=== PATIENT | male | born 1955 | race Caucasian/White ===

== ENCOUNTER 2019-06-17 07:49 | Inpatient (IN) | payer BC ==
--- NOTE | 2019-06-17 08:49 | RAD REPORT ---
EXAM DESCRIPTION: RAD - Chest Pa And Lat (2 Views) - 06/17/2019 8:30 am CLINICAL HISTORY: COUGH Chest pain. COMPARISON: Chest Single View dated 04/11/2017; Chest Single View dated 04/08/2016; Chest Single View dated 04/07/2016 FINDINGS: The lungs are clear. The heart is mildly prominent. No displaced fractures. Hardware plate is present in the cervical spine.
[2019-06-17] MEDS ORDERED: METHYLPREDNISOLONE 125 MG INJ ONE (08:58)
[2019-06-17] MEDS ORDERED: IPRATROPIUM BROM 0.5MG/2.5ML ONE (08:58)
[2019-06-17] MEDS ORDERED: LEVALBUTEROL 1.25 MG/3 ML NEB ONE (08:59)
[2019-06-17] MEDS ORDERED: ONDANSETRON 4 MG/2 ML VIAL ONE (08:59)
[2019-06-17] MEDS ORDERED: NA CHLORIDE 0.9% 1,000 ML ONE ×2 (08:59→09:42)
[2019-06-17] MEDS ORDERED: ACETAMINOPHEN 325 MG TABLET ONE (08:59)
[2019-06-17 09:03] LABS: Absolute Lymphocytes (CBC) 0.6 K/uL (0.7-4.9); Basophils % 0.9 % (0-1.3); Hematocrit 39.2 % (39.6-49.0); Lymphocytes % 10.2 % (15.3-44.8); MPV 7.6 fL (7.6-11.3); RBC Red Blood Cell Count 4.47 M/uL (4.33-5.43)
[2019-06-17 09:09] LABS: Protime INR 1.03
[2019-06-17 09:24] LABS: ALT/SGPT 33 U/L (12-78); AST/SGOT 26 U/L (15-37); Albumin 4.1 g/dL (3.4-5.0); Alkaline Phosphatase 80 U/L (45-117); BUN Blood Urea Nitrogen 17 mg/dL (7-18); Bicarbonate 26 mmol/L (21-32); Bilirubin Direct 0.1 mg/dL (0-0.2); Bilirubin Total 0.4 mg/dL (0.2-1.0); Glucose Level 99 mg/dL (74-106); Lipase 179 U/L (73-393); NT PRO-BNP 403 pg/mL (<125); Potassium 4.4 mmol/L (3.5-5.1); Protein, Total 7.6 g/dL (6.4-8.2); Sodium Level 137 mmol/L (136-145); Troponin (Emerg Dept Use Only) < 0.02 ng/mL (0.0-0.045)
[2019-06-17] MEDS ORDERED: HYDROCODONE/CHLORPHEN 5 ML/OSYR ONE (09:42)
[2019-06-17] MEDS ORDERED: OSELTAMIVIR 75 MG CAP ONE (09:42)
--- NOTE | 2019-06-17 09:45 | ER ---
Nurse's Notes [facility] Name: Bert Quigley Age: 64 yrs Sex: Male : 1955 Arrival Date: 06/17/2019 Time: 07:50 Bed 5 Private MD: Mati Doran E Diagnosis: Fever, unspecified;Dyspnea;Unspecified kidney failure-insufficency;Influenza due to identified novel influenza A virus;Chest pain, unspecified;Volume depletion Presentation: 06/17 08:05 Presenting complaint: Patient states: Cough,congestion, fever, and SOB x 2-3 days, ph states, " I've been coughing so much I almost throw up.". Transition of care: patient was not received from another setting of care. Onset of symptoms was June 17, 2019. Risk Assessment: Do you want to hurt yourself or someone else? Patient reports no desire to harm self or others. Initial Sepsis Screen: Does the patient meet any 2 criteria? HR > 90 bpm. Does the patient have a suspected source of infection? Yes: Productive cough/pneumonia. Care prior to arrival: None. 08:05 Method Of Arrival: Ambulatory ph 08:05 Acuity: TIN 3 ph Historical: - Allergies: 08:13 Cefoxitin Sodium; ph - Home Meds: 08:13 oxcarbazepine 300 mg oral tab [Active]; nortriptyline 25 mg Oral cap [Active]; ph metoprolol succinate 50 mg oral Tb24 1 tab once daily [Active]; lisinopril 10 mg oral tab 1 tab [Active]; Fish Oil oral oral [Active]; - PMHx: 08:13 thoracic aneurysm; ph - PSHx: 08:13 cervial spine - anterior fusion; ph - Immunization history:: Adult Immunizations unknown. - Social history:: Smoking status: Patient/guardian denies using tobacco. - Family history:: not pertinent. - Ebola Screening: : No symptoms or risks identified at this time. Screenin:14 Abuse screen: Denies threats or abuse. Denies injuries from another. Nutritional ph screening: No deficits noted. Tuberculosis screening: No symptoms or risk factors identified. Fall Risk None identified. Assessment: 08:15 General: Appears in no apparent distress. uncomfortable, well groomed, Behavior is ph calm, cooperative, appropriate for age, Reports fever for 2-3 days. Pain: Complains of pain in back and chest. Neuro: Level of Consciousness is awake, alert, obeys commands, Oriented to person, place, time, situation. Cardiovascular: Reports chest pain, nausea, shortness of breath, Rhythm is regular Chest pain is aggravated by coughing. Respiratory: Reports shortness of breath cough that is Airway is patent Respiratory effort is even, unlabored, Respiratory pattern is regular, symmetrical. GI: Reports nausea, Patient currently denies abdominal pain, diarrhea, vomiting. Derm: Skin is intact, is healthy with good turgor, Skin is pink, warm \\T\\ dry. Musculoskeletal: Circulation, motion, and sensation intact. Range of motion: intact in all extremities. 09:57 Reassessment: Patient appears in no apparent distress at this time. Patient and/or ph family updated on plan of care and expected duration. Pain level reassessed. Patient is alert, oriented x 3, equal unlabored respirations, skin warm/dry/pink. Pt taken to radiology by stretcher for US, family remains at bedside. 11:00 Reassessment: Patient appears in no apparent distress at this time. Patient and/or ph family updated on plan of care and expected duration. Pain level reassessed. Patient is alert, oriented x 3, equal unlabored respirations, skin warm/dry/pink. 12:26 Reassessment: Patient appears in no apparent distress at this time. Patient and/or ph family updated on plan of care and expected duration. Pain level reassessed. 12:59 Reassessment: Patient appears in no apparent distress at this time. awaiting a bed sg assignment at this time. 13:46 Reassessment: Patient appears in no apparent distress at this time. Patient and/or ph family updated on plan of care and expected duration. Pain level reassessed. Pt asleep w/ equal, unlabored respirations, awaiting room assignment. 14:16 Reassessment: Patient appears in no apparent distress at this time. No changes from previously documented assessment. Report called to second floor. Vital Signs: 08:13 Resp 20; Temp 99.7(O); ph 08:13 BP 104 / 78; Pulse 113; Resp 20; Temp 99.7(O); Pulse Ox 100% on R/A; Weight 97.52 kg; ph Height 5 ft. 9 in. (175.26 cm); 09:18 BP 108 / 67; Pulse 114; Resp 18; Pulse Ox 100% on Nebulizer Mask; ph 10:30 BP 113 / 67; Pulse 114; Resp 18; Pulse Ox 98% on R/A; ph 11:30 BP 94 / 60; Pulse 101; Resp 20; Pulse Ox 99% on R/A; ph 12:26 BP 103 / 58; Pulse 100; Resp 18; Pulse Ox 95% on R/A; ph 13:45 BP 96 / 63; Pulse 89; Resp 18; Pulse Ox 92% on R/A; ph 14:17 Temp 98.0; ph 08:13 Body Mass Index 31.75 (97.52 kg, 175.26 cm) ph 12:26 pt asleep ph 13:45 pt asleep ph ED Course: 07:50 Patient arrived in ED. as 07:51 Mati Doran MD is Private Physician. as 07:57 Seferino Sanabria MD is Attending Physician. mira 08:05 Angela Nash RN is Primary Nurse. ph 08:06 Triage completed. ph 08:14 Arm band placed on Patient placed in an exam room, on a stretcher. ph 08:14 Patient has correct armband on for positive identification. Placed in gown. Bed in low ph position. Call light in reach. Side rails up X 1. library monitor on. Pulse ox on. NIBP on. Door closed. Noise minimized. Warm blanket given. 08:23 No provider procedures requiring assistance completed. ph 08:28 Chest Pa And Lat (2 Views) XRAY In Process Unspecified. EDMS 09:42 Ross Abdalla MD is Hospitalizing Provider. mira 10:09 US Extremity Venous W Compression Dariel In Process Unspecified. EDMS 12:03 VQ scan (Nuclear Medicine) In Process Unspecified. EDMS 12:08 Note: VQ SCAN COMPLETE. PT TOLERATED EXAM WELL. NO CHANGE. RETURNED TO ED. NURSE john2 NOTIFIED. RT ANKUR(N), EMBEDDER. 14:17 Patient admitted, IV remains in place. ph Administered Medications: 09:00 Drug: Xopenex 1.25 mg Route: Inhalation; ph 12:24 Follow up: Response: No adverse reaction ph 09:00 Drug: AtroVENT Aerosol 0.5 mg Route: Inhalation; ph 12:24 Follow up: Response: No adverse reaction ph 09:05 Drug: NS 0.9% 500 ml Route: IV; Rate: bolus; Site: left antecubital; ph 12:20 Follow up: Response: No adverse reaction; IV Status: Completed infusion; IV Intake: ph 500ml 09:05 Drug: SOLU-Medrol 125 mg Route: IVP; Site: left antecubital; ph 12:24 Follow up: Response: No adverse reaction ph 09:05 Drug: Tylenol 650 mg Route: PO; ph 12:22 Follow up: Response: No adverse reaction ph 09:05 Drug: Zofran 4 mg Route: IVP; Site: left antecubital; ph 12:23 Follow up: Response: No adverse reaction; Nausea is decreased ph 09:46 Drug: Tussionex Pennkinetic ER 5 ml Route: PO; ph 12:23 Follow up: Response: No adverse reaction ph 09:48 Drug: Tamiflu 75 mg Route: PO; ph 12:23 Follow up: Response: No adverse reaction ph 09:48 Drug: NS 0.9% 1000 ml Route: IV; Rate: 1 bolus; Site: left antecubital; ph 12:24 Follow up: Response: No adverse reaction; IV Status: Completed infusion; IV Intake: ph 1000ml 12:00 Drug: NS 0.9% 1000 ml Route: IV; Rate: 125 ml/hr; Site: left antecubital; ph 12:22 Follow up: Response: No adverse reaction; IV Status: Infusion continued upon admission ph 12:00 Drug: Zithromax 500 mg Route: IVPB; Infused Over: 1 hrs; Site: left antecubital; ph 13:25 Follow up: Response: No adverse reaction; IV Status: Completed infusion sg 12:20 Not Given (Other Intervention Used): Xopenex 1.25 mg Inhalation once ph Intake: 12:20 IV: 500ml; Total: 500ml. ph 12:24 IV: 1000ml; Total: 1500ml. ph Outcome: 09:44 Decision to Hospitalize by Provider. mira 14:17 Admitted to Tele accompanied by tech, via wheelchair, room 222. ph 14:17 Condition: stable 14:17 Instructed on the need for admit. 14:25 Patient left the ED. ph Signatures: Dispatcher [employer] EDMS Hemal Palacios BRIDGETTE RN Seferino Douglas MD MD cha Buechter, Jesse jb2 Martinez, Amelia as Hall, Patricia, RN RN ph
--- NOTE | 2019-06-17 09:45 | EDPHYS ---
Physician Documentation [facility] Name: Bert Quigley Age: 64 yrs Sex: Male : 1955 Arrival Date: 06/17/2019 Time: 07:50 Bed 5 Private MD: Mati Doran E ED Physician Seferino Sanabria HPI: 06/17 08:11 This 64 yrs old Male presents to ER via Ambulatory with complaints of Cough, mira Shortness Of Breath. 08:11 The patient or guardian reports cough, difficulty breathing. Onset: The mira symptoms/episode began/occurred 2 day(s) ago. Severity of symptoms: At their worst the symptoms were mild, moderate, in the emergency department the symptoms are unchanged. Modifying factors: The symptoms are alleviated by nothing, the symptoms are aggravated by exertion. Associated signs and symptoms: The patient has no apparent associated signs or symptoms. The patient has not experienced similar symptoms in the past. Historical: - Allergies: 08:13 Cefoxitin Sodium; ph - Home Meds: 08:13 oxcarbazepine 300 mg oral tab [Active]; nortriptyline 25 mg Oral cap [Active]; ph metoprolol succinate 50 mg oral Tb24 1 tab once daily [Active]; lisinopril 10 mg oral tab 1 tab [Active]; Fish Oil oral oral [Active]; - PMHx: 08:13 thoracic aneurysm; ph - PSHx: 08:13 cervial spine - anterior fusion; ph - Immunization history:: Adult Immunizations unknown. - Social history:: Smoking status: Patient/guardian denies using tobacco. - Family history:: not pertinent. - Ebola Screening: : No symptoms or risks identified at this time. ROS: 08:11 Constitutional: Negative for fever, chills, and weight loss, Eyes: Negative for injury, mira pain, redness, and discharge, ENT: Negative for injury, pain, and discharge, Neck: Negative for injury, pain, and swelling, Cardiovascular: Negative for chest pain, palpitations, and edema, Abdomen/GI: Negative for abdominal pain, nausea, vomiting, diarrhea, and constipation, Back: Negative for injury and pain, : Negative for injury, bleeding, discharge, and swelling, MS/Extremity: Negative for injury and deformity, Skin: Negative for injury, rash, and discoloration, Neuro: Negative for headache, weakness, numbness, tingling, and seizure, Psych: Negative for depression, anxiety, suicide ideation, homicidal ideation, and hallucinations, Allergy/Immunology: Negative for hives, rash, and allergies, Endocrine: Negative for neck swelling, polydipsia, polyuria, polyphagia, and marked weight changes, Hematologic/Lymphatic: Negative for swollen nodes, abnormal bleeding, and unusual bruising. 08:11 Respiratory: Positive for cough, shortness of breath, at rest. Exam: 08:11 Constitutional: This is a well developed, well nourished patient who is awake, alert, mira and in no acute distress. Head/Face: Normocephalic, atraumatic. Eyes: Pupils equal round and reactive to light, extra-ocular motions intact. Lids and lashes normal. Conjunctiva and sclera are non-icteric and not injected. Cornea within normal limits. Periorbital areas with no swelling, redness, or edema. ENT: Nares patent. No nasal discharge, no septal abnormalities noted. Tympanic membranes are normal and external auditory canals are clear. Oropharynx with no redness, swelling, or masses, exudates, or evidence of obstruction, uvula midline. Mucous membranes moist. Neck: Trachea midline, no thyromegaly or masses palpated, and no cervical lymphadenopathy. Supple, full range of motion without nuchal rigidity, or vertebral point tenderness. No Meningismus. Chest/axilla: Normal chest wall appearance and motion. Nontender with no deformity. No lesions are appreciated. Cardiovascular: Regular rate and rhythm with a normal S1 and S2. No gallops, murmurs, or rubs. Normal PMI, no JVD. No pulse deficits. Abdomen/GI: Soft, non-tender, with normal bowel sounds. No distension or tympany. No guarding or rebound. No evidence of tenderness throughout. Back: No spinal tenderness. No costovertebral tenderness. Full range of motion. Male : Normal genitalia with no discharge or lesions. Skin: Warm, dry with normal turgor. Normal color with no rashes, no lesions, and no evidence of cellulitis. MS/ Extremity: Pulses equal, no cyanosis. Neurovascular intact. Full, normal range of motion. Neuro: Awake and alert, GCS 15, oriented to person, place, time, and situation. Cranial nerves II-XII grossly intact. Motor strength 5/5 in all extremities. Sensory grossly intact. Cerebellar exam normal. Normal gait. Psych: Awake, alert, with orientation to person, place and time. Behavior, mood, and affect are within normal limits. 08:11 Respiratory: the patient does not display signs of respiratory distress, Respirations: normal, Breath sounds: decreased breath sounds, that are mild, are scattered, rhonchi, that are mild, are scattered, Respiratory rate: 20 08:11 Musculoskeletal/extremity: DVT Exam: No signs of deep vein thrombosis. no pain, no swelling, no tenderness, negative Homans' sign noted on exam, no appreciated bluish discoloration, no erythema, no increased warmth. 09:22 Musculoskeletal/extremity: DVT Exam: [facility] Vital Signs: 08:13 Resp 20; Temp 99.7(O); ph 08:13 BP 104 / 78; Pulse 113; Resp 20; Temp 99.7(O); Pulse Ox 100% on R/A; Weight 97.52 kg; ph Height 5 ft. 9 in. (175.26 cm); 09:18 BP 108 / 67; Pulse 114; Resp 18; Pulse Ox 100% on Nebulizer Mask; ph 10:30 BP 113 / 67; Pulse 114; Resp 18; Pulse Ox 98% on R/A; ph 11:30 BP 94 / 60; Pulse 101; Resp 20; Pulse Ox 99% on R/A; ph 12:26 BP 103 / 58; Pulse 100; Resp 18; Pulse Ox 95% on R/A; ph 13:45 BP 96 / 63; Pulse 89; Resp 18; Pulse Ox 92% on R/A; ph 14:17 Temp 98.0; ph 08:13 Body Mass Index 31.75 (97.52 kg, 175.26 cm) ph 12:26 pt asleep ph 13:45 pt asleep ph MDM: 07:57 Patient medically screened. [facility] 08:13 Data reviewed: vital signs, nurses notes, lab test result(s), EKG, radiologic studies, [facility] plain films. 06/17 08:11 Order name: Basic Metabolic Panel [facility] 06/17 08:11 Order name: CBC with Diff; Complete Time: 13:02 [facility] 06/17 08:11 Order name: LFT's; Complete Time: 09:37 [facility] 06/17 08:11 Order name: Magnesium; Complete Time: 09:37 [facility] 06/17 08:11 Order name: NT PRO-BNP; Complete Time: 09:37 [facility] 06/17 08:11 Order name: PT-INR; Complete Time: 09:20 [facility] 06/17 08:11 Order name: Troponin (emerg Dept Use Only); Complete Time: 09:37 mira 06/17 08:11 Order name: Blood Culture Adult (2) 06/17 08:11 Order name: Procalcitonin; Complete Time: 09:37 [facility] 06/17 08:11 Order name: Influenza Screen (a \T\ B); Complete Time: 09:20 [facility] 06/17 08:11 Order name: Lactate; Complete Time: 09:20 [facility] 06/17 08:11 Order name: D-Dimer; Complete Time: 09:20 [facility] 06/17 08:11 Order name: Lipase; Complete Time: 09:37 [facility] 06/17 08:12 Order name: Basic Metabolic Panel; Complete Time: 09:37 [facility] 06/17 08:11 Order name: Chest Pa And Lat (2 Views) XRAY; Complete Time: 08:58 [facility] 06/17 09:38 Order name: VQ scan (Nuclear Medicine); Complete Time: 13:02 [facility] 06/17 09:38 Order name: US Extremity Venous W Compression Dariel; Complete Time: 13:02 [facility] 06/17 11:54 Order name: CBC Smear Scan; Complete Time: 13:02 [facility] 06/17 08:11 Order name: EKG; Complete Time: 08:12 06/17 08:11 Order name: Cardiac monitoring; Complete Time: 08:24 06/17 08:11 Order name: EKG - Nurse/Tech; Complete Time: 09:15 mira 06/17 08:11 Order name: IV Saline Lock; Complete Time: 09:15 [facility] 06/17 08:11 Order name: Labs collected and sent; Complete Time: 09:16 [facility] 06/17 08:11 Order name: O2 Per Protocol; Complete Time: 08:24 [facility] 06/17 08:11 Order name: O2 Sat Monitoring; Complete Time: 08:24 mira 06/17 13:13 Order name: CONS Pharmacy Consult EDMS Administered Medications: 09:00 Drug: Xopenex 1.25 mg Route: Inhalation; ph 12:24 Follow up: Response: No adverse reaction ph 09:00 Drug: AtroVENT Aerosol 0.5 mg Route: Inhalation; ph 12:24 Follow up: Response: No adverse reaction ph 09:05 Drug: NS 0.9% 500 ml Route: IV; Rate: bolus; Site: left antecubital; ph 12:20 Follow up: Response: No adverse reaction; IV Status: Completed infusion; IV Intake: ph 500ml 09:05 Drug: SOLU-Medrol 125 mg Route: IVP; Site: left antecubital; ph 12:24 Follow up: Response: No adverse reaction ph 09:05 Drug: Tylenol 650 mg Route: PO; ph 12:22 Follow up: Response: No adverse reaction ph 09:05 Drug: Zofran 4 mg Route: IVP; Site: left antecubital; ph 12:23 Follow up: Response: No adverse reaction; Nausea is decreased ph 09:46 Drug: Tussionex Pennkinetic ER 5 ml Route: PO; ph 12:23 Follow up: Response: No adverse reaction ph 09:48 Drug: Tamiflu 75 mg Route: PO; ph 12:23 Follow up: Response: No adverse reaction ph 09:48 Drug: NS 0.9% 1000 ml Route: IV; Rate: 1 bolus; Site: left antecubital; ph 12:24 Follow up: Response: No adverse reaction; IV Status: Completed infusion; IV Intake: ph 1000ml 12:00 Drug: NS 0.9% 1000 ml Route: IV; Rate: 125 ml/hr; Site: left antecubital; ph 12:22 Follow up: Response: No adverse reaction; IV Status: Infusion continued upon admission ph 12:00 Drug: Zithromax 500 mg Route: IVPB; Infused Over: 1 hrs; Site: left antecubital; ph 13:25 Follow up: Response: No adverse reaction; IV Status: Completed infusion sg 12:20 Not Given (Other Intervention Used): Xopenex 1.25 mg Inhalation once ph Disposition: 06/17/19 09:44 Hospitalization ordered by Ross Abdalla for Inpatient Admission. Preliminary diagnosis are Fever, unspecified, Dyspnea, Unspecified kidney failure - insufficency, Influenza due to identified novel influenza A virus, Chest pain, unspecified, Volume depletion. - Bed requested for Telemetry/MedSurg (Inpatient). - Status is Inpatient Admission. ph - Condition is Fair. - Problem is new. - Symptoms have improved. UTI on Admission? No Signatures: Dispatcher [employer] EDGA Hina Villatoro RN RN kl Anderson, Corey, MD MD cha Hall, Patricia, RN RN ph Gay, Hemal ANGELES sg Corrections: (The following items were deleted from the chart) 09:41 09:23 Chest For PE Angio+CT.RAD.BRZ ordered. EDGA EDGA 09:45 09:44 Hospitalization Ordered by Ross Abdalla MD for Inpatient Admission. Preliminary [facility] diagnosis is Fever, unspecified; Dyspnea; Unspecified kidney failure - insufficency; Influenza due to identified novel influenza A virus. Bed requested for Telemetry/MedSurg (Inpatient). Status is Inpatient Admission. Condition is Fair. Problem is new. Symptoms have improved. UTI on Admission? No. mira 09:47 09:45 06/17/2019 09:44 Hospitalization Ordered by Ross Abdalla MD for Inpatient mira Admission. Preliminary diagnosis is Fever, unspecified; Dyspnea; Unspecified kidney failure - insufficency; Influenza due to identified novel influenza A virus; Chest pain, unspecified. Bed requested for Telemetry/MedSurg (Inpatient). Status is Inpatient Admission. Condition is Fair. Problem is new. Symptoms have improved. UTI on Admission? No. mira 13:54 09:47 06/17/2019 09:44 Hospitalization Ordered by Ross Abdalla MD for Inpatient kl Admission. Preliminary diagnosis is Fever, unspecified; Dyspnea; Unspecified kidney failure - insufficency; Influenza due to identified novel influenza A virus; Chest pain, unspecified; Volume depletion. Bed requested for Telemetry/MedSurg (Inpatient). Status is Inpatient Admission. Condition is Fair. Problem is new. Symptoms have improved. UTI on Admission? No. mira 14:25 13:54 06/17/2019 09:44 Hospitalization Ordered by Ross Abdalla MD for Inpatient ph Admission. Preliminary diagnosis is Fever, unspecified; Dyspnea; Unspecified kidney failure - insufficency; Influenza due to identified novel influenza A virus; Chest pain, unspecified; Volume depletion. Bed requested for Telemetry/MedSurg (Inpatient). Status is Inpatient Admission. Condition is Fair. Problem is new. Symptoms have improved. UTI on Admission? No. kl
[2019-06-17] MEDS ORDERED: AZITHROMYCIN IV 500 MG in NA CHLORIDE 0.9% 250 ML IVPB ONE (10:15)
--- NOTE | 2019-06-17 10:21 | EKG ---
Test Date: 2019-06-17 Test Time: 08:57:28 Box Machine Operator: CESIA MEASUREMENT RESULTS: Intervals: Rate: 109 NH: 158 QRSD: 96 QT: 304 QTc: 409 [place]: P: 60 NH: 158 QRS: -9 T: 66 INTERPRETIVE STATEMENTS: Sinus tachycardia Otherwise normal ECG Compared to ECG 04/11/2017 16:25:54 Sinus bradycardia no longer present Electronically Signed On 06-17-19 10:19:52 PRESS HAND by David Hurley
--- NOTE | 2019-06-17 10:26 | RAD REPORT ---
EXAM DESCRIPTION: USExtrem Venous W Compress Bil06/17/2019 10:09 am CLINICAL HISTORY: Bilateral leg swelling COMPARISON: none FINDINGS: The common femoral, superficial femoral, popliteal and posterior tibial veins bilaterally are compressible and demonstrate augmentation. Doppler demonstrates good flow. IMPRESSION: No evidence of deep venous thrombosis involving either lower extremity.
[2019-06-17 11:53] LABS: Blood Morphology Comment NOT SEEN (NOT SEEN); Platelet Estimate ADEQ; Urine White Blood Cell Casts OK
--- NOTE | 2019-06-17 12:16 | RAD REPORT ---
EXAM DESCRIPTION: NM - Vent Perfusion VQ Scan - 06/17/2019 12:02 pm CLINICAL HISTORY: Shortness of breath COMPARISON: June 17, 2019 chest x-ray TECHNIQUE: 19.9 Mci [id number] was administered by inhalation. First breath, equilibrium, and washout images of the lungs obtained 7.6 millicuries Technetium-99 MAA was administered intravenously. Anterior, posterior, lateral and ob lique views of the lungs were taken. FINDINGS: The lungs demonstrate relatively homogeneous radiotracer activity on ventilation and perfu lazara sequences. No mismatched segmental or lobar perfusion defects are seen. IMPRESSION: No evidence of a pulmonary embolus
--- NOTE | 2019-06-17 13:13 | P.HP ---
Certification for Inpatient Patient admitted to: Observation Practitioner: I am a practitioner with admitting privileges, knowledge of patient current condition, hospital course, and medical plan of care. Services: Services provided to patient in accordance with Admission requirements found in Title 42 Section 412.3 of the Code of Federal Regulations Patient History Date of Service: 06/17/19 Reason for admission: Shortness of breath History of Present Illness: Mr. Quigley is a 64-year-old male with a history of hypertension who presented to the ER with complaints of shortness of breath. His symptoms started 2 days ago with malaise, fatigue, nonproductive cough and progressed to shortness of breath this morning. Patient had a sick contact at home with his daughter having similar symptoms. He also reported subjective fever, poor appetite and decreased oral intake. 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 moist/pink, EOMI, Sclerae nonicteric Neck: Supple, 2+ carotid pulse no bruit, No LAD, Without JVD or thyroid abnormality Respiratory: Clear to auscultation bilaterally, Normal air movement Cardiovascular: Regular rate/rhythm, Normal S1 S2 Gastrointestinal: Normal bowel sounds, No tenderness Musculoskeletal: No tenderness Integumentary: No rashes Neurological: Normal gait, Normal speech, Normal strength at 5/5 x4 extr, Normal tone, Normal affect Lymphatics: No axilla or inguinal lymphadenopathy - Studies Laboratory Data (last 24 hrs) 06/17/19 08:45: PT 12.1, INR 1.03 06/17/19 08:45: WBC 5.6, Hgb 13.8, Hct 39.2 L, Plt Count 166 06/17/19 08:45: Sodium 137, Potassium 4.4, BUN 17, Creatinine 1.74 H, Glucose 99 , Magnesium 2.0, Total Bilirubin 0.4, AST 26, ALT 33, Alkaline Phosphatase 80, Lipase 179 Microbiology Data (last 24 hrs): 06/17/19 08:48 Nasopharnyx Influenza Type A Antigen Screen - Final Positive 06/17/19 08:48 Nasopharnyx Influenza Type B Antigen Screen - Final Negative Assessment and Plan - Plan Mr. Quigley is 64 y/o male pw SOB # Dyspnea- Patient was hypoxic on presentation per ER physician. dyspnea 2/2 influenza. - currently at 96% on RA -supplemental oxygen as needed -D Dimer mildly elevated. VQ scan is neg. -Duoneb. #Influenza A positive- Initiate Tamiflu - monitor VS -No leukocytosis. #Hypertension- hold lisinopril due to RADHA -Continue metoprolol cautiously -IV hydralazine prn #RADHA- prerenal azotemia due to hypovolemia. - check UA. -Avoid nephrotoxin, trend cr. -IVF #DVT ppx- SCD Patient is full code Dispo- observation. Discharge Plan: Home - Advance Directives Does patient have a Living Will: No Does patient have a Durable POA for Healthcare: No - Code Status/Comfort Care Code Status Assessed: Yes Code Status: Full Code
[2019-06-17] MEDS ORDERED: ONDANSETRON 4 MG/2 ML VIAL IV PRN (14:33)
[2019-06-17] MEDS ORDERED: HYDRALAZINE HCL 20 MG/ML VIAL IV PRN (14:33)
[2019-06-17] MEDS: ACETAMINOPHEN 325 MG TABLET PO PRN (15:46)
[2019-06-17] MEDS: NA CHLORIDE 0.9% 1,000 ML IV SCH (15:46)
[2019-06-17 18:02] VITALS: BMI 31.7
[2019-06-17] MEDS: LEVALBUTEROL 1.25 MG/3 ML NEB NEB PRN (20:10)
[2019-06-17] MEDS: IPRATROPIUM BROM 0.5MG/2.5ML NEB PRN (20:10)
[2019-06-17] MEDS: OSELTAMIVIR 75 MG CAP PO SCH (20:31)
[2019-06-17] MEDS ORDERED: PNEUMOCOCCAL VACCINE 0.5 ML IMVAC ONE (21:00)
[2019-06-17] MEDS ORDERED: INFLUENZA VACCINE (for 3y+) 0.5 ML DOSE IMVAC ONE (21:00)
[2019-06-17 23:55] LABS: Urine Appearance CLEAR; Urine Bilirubin NEGATIVE (NEG); Urine Blood NEGATIVE (NEG); Urine Color YELLOW; Urine Glucose NEGATIVE (NEG); Urine Protein NEGATIVE (NEG); Urine Urobilinogen 0.2 mg/dL (0.2-1.0)
[2019-06-17 23:56] LABS: Urine Microscopic Reflex NO UMIC
[2019-06-18] MEDS: NA CHLORIDE 0.9% 1,000 ML IV SCH ×4 (00:33→20:33)
[2019-06-18] MEDS: ACETAMINOPHEN 325 MG TABLET PO PRN ×3 (08:17→20:32)
[2019-06-18] MEDS: OSELTAMIVIR 75 MG CAP PO SCH ×2 (08:17→20:31)
[2019-06-18] MEDS: IPRATROPIUM BROM 0.5MG/2.5ML NEB PRN ×2 (08:27→14:37)
[2019-06-18] MEDS: LEVALBUTEROL 1.25 MG/3 ML NEB NEB PRN ×2 (08:27→14:37)
[2019-06-18 09:06] LABS: Absolute Lymphocytes (CBC) 1.7 K/uL (0.7-4.9); Basophils % 0.3 % (0-1.3); Hematocrit 34.2 % (39.6-49.0); Lymphocytes % 26.1 % (15.3-44.8); MPV 7.6 fL (7.6-11.3); RBC Red Blood Cell Count 3.85 M/uL (4.33-5.43)
[2019-06-18 09:13] LABS: Bilirubin Total 0.3 mg/dL (0.2-1.0); Potassium 3.9 mmol/L (3.5-5.1); Protein, Total 6.1 g/dL (6.4-8.2)
--- NOTE | 2019-06-18 11:06 | RAD REPORT ---
EXAM DESCRIPTION: CT - Thorax Wo Con - 06/18/2019 10:57 am CLINICAL HISTORY: Shortness of breath, flu-like symptoms COMPARISON: Two-view chest June 17 TECHNIQUE: Axial 5 mm thick images of the chest were obtained without IV contrast. All CT scans are performed using dose optimization technique as appropriate and may include automated exposure control or mA/KV adjustment according to patient size. FINDINGS: No dense consolidation identified. No mass lesions are present. There is a very minimal am ount of airspace opacification in the posterior midportion of the right upper lobe. Minimal scarring and atelectasis changes are present in the posterior and posteromedial aspect of each lower lobe. Pat ient has trace bilateral pleural effusions. No pleural thickening or pleural based mass. No pneumotho rax. No abnormal mediastinal or hilar masses or lymphadenopathy seen. No gross aortic or pulmonary artery finding suspected. Assessment is limited in the absence of IV contrast. No chest wall mass or abnormal axillary lymphadenopathy. IMPRESSION: Trace airspace opacities are present in the posterior midportion right upper lobe. This is probably a very minimal infiltrate. Patient has trace amounts of bilateral pleural fluid with adjacent scarring or atelectasis.
--- NOTE | 2019-06-18 11:29 | P.PN ---
Subjective Date of Service: 06/18/19 Chief Complaint: Shortness of breath Patient remains short of breath. Febrile. influenza vaccination and pneumovax given to patient overnight? Review of Systems 10-point ROS is otherwise unremarkable General: Fever, Chills Respiratory: Cough, Shortness of Breath Physical Examination - Vital Signs Temperature: 101.2 F Blood Pressure: 117/73 Pulse: 89 Respirations: 20 Pulse Ox (%): 95 - Physical Exam General: Alert, In no apparent distress HEENT: Atraumatic, PERRLA, EOMI Neck: Supple, JVD not distended Respiratory: Diminished, Inspiratory wheezes Cardiovascular: Regular rate/rhythm, Normal S1 S2 Gastrointestinal: Normal bowel sounds, No tenderness Musculoskeletal: No tenderness Integumentary: No rashes Neurological: Normal speech, Normal tone, Normal affect Lymphatics: No axilla or inguinal lymphadenopathy - Studies Laboratory Data (last 24 hrs) 06/17/19 08:45: WBC 5.6, Hgb 13.8, Hct 39.2 L, Plt Count 166 Laboratory Tests 06/18/19 06/18/19 08:39 08:39 WBC 6.5 D RBC 3.85 L Plt Count 140 L Sodium 141 Potassium 3.9 Chloride 110 H Creatinine 1.32 H Glucose 122 H Serum Total Protein 6.1 L Albumin/Globulin Ratio 1.0 L Microbiology Data (last 24 hrs): 06/17/19 08:48 Nasopharnyx Influenza Type A Antigen Screen - Final 06/17/19 08:48 Nasopharnyx Influenza Type B Antigen Screen - Final Imagings Data: IMPRESSION: Trace airspace opacities are present in the posterior midportion right upper lobe. This is probably a very minimal infiltrate. Patient has trace amounts of bilateral pleural fluid with adjacent scarring or atelectasis. Medications List Reviewed: No (Patient to bring home med list today) Assessment And Plan - Plan Mr. Quigley is 64 y/o male pw SOB # Dyspnea- Patient was hypoxic on presentation per ER physician. dyspnea 2/2 influenza & CAP. -Continue supplemental oxygen -supplemental oxygen as needed -D Dimer mildly elevated. VQ scan is neg. -Duoneb. #Influenza A positive- on Tamiflu -monitor VS -No leukocytosis. -Unclear why patient was given vaccinations while febrile. DW nursing staff #CAP- infiltrates on CT chest done today, likely contributing to febrile state -initiate IV abx -monitor VS #Hypertension- hold lisinopril due to RADHA -Continue metoprolol cautiously -IV hydralazine prn #RADHA- prerenal azotemia due to hypovolemia. - Cr is improving. -Avoid nephrotoxin, trend cr. -IVF #Thrombocytopenia- due to acute illness. Monitor #DVT ppx- SCD Patient is full code Dispo- pending clinical improvement.
[2019-06-18] MEDS: Levofloxacin500mg IV 500 MG/100 ML BAG IV SCH (12:38)
[2019-06-18 13:44] LABS: Platelet Estimate ADEQ
[2019-06-18 13:45] LABS: Blood Morphology Comment NOT SEEN (NOT SEEN); Platelets, Giant FEW
[2019-06-19] MEDS: NA CHLORIDE 0.9% 1,000 ML IV SCH ×5 (00:24→23:38)
[2019-06-19 09:26] LABS: Albumin 3.3 g/dL (3.4-5.0); Bilirubin Total 0.4 mg/dL (0.2-1.0); Potassium 3.9 mmol/L (3.5-5.1); Protein, Total 6.8 g/dL (6.4-8.2)
[2019-06-19] MEDS: ACETAMINOPHEN 325 MG TABLET PO PRN (09:49)
[2019-06-19] MEDS: OSELTAMIVIR 75 MG CAP PO SCH ×2 (09:49→20:26)
--- NOTE | 2019-06-19 10:32 | P.PN ---
Subjective Date of Service: 06/19/19 Chief Complaint: Shortness of breath Subjective: Improving, Doing well Improving. Still with low grade fever overnight. SOB is improved. Denies any new complaints Physical Examination - Vital Signs Temperature: 100 F Blood Pressure: 122/77 Pulse: 88 Respirations: 20 Pulse Ox (%): 94 - Physical Exam General: Alert, In no apparent distress HEENT: Atraumatic, PERRLA, EOMI Neck: Supple, JVD not distended Respiratory: Clear to auscultation bilaterally, Normal air movement Cardiovascular: Regular rate/rhythm, Normal S1 S2 Gastrointestinal: Normal bowel sounds, No tenderness Musculoskeletal: No tenderness Integumentary: No rashes Neurological: Normal speech, Normal tone, Normal affect Lymphatics: No axilla or inguinal lymphadenopathy - Studies Laboratory Tests 06/18/19 06/19/19 08:39 08:57 RBC 3.85 L Hgb 11.7 L Hct 34.2 L Plt Count 140 L Sodium 142 Potassium 3.9 Chloride 109 H Creatinine 1.38 H Estimated GFR 52 L Glucose 110 H Albumin 3.3 L Albumin/Globulin Ratio 0.9 L Microbiology Data (last 24 hrs): Microbiology 06/17/19 08:48 Nasopharnyx Influenza Type A Antigen Screen - Final 06/17/19 08:48 Nasopharnyx Influenza Type B Antigen Screen - Final 06/17/19 09:00 Blood - Blood Aerobic Blood Culture - Preliminary 06/17/19 09:00 Blood - Blood Anaerobic Blood Culture - Preliminary No growth in 24 hours. No growth in 24 hours. 06/17/19 08:45 Blood - Blood Aerobic Blood Culture - Preliminary 06/17/19 08:45 Blood - Blood Anaerobic Blood Culture - Preliminary No growth in 24 hours. No growth in 24 hours. Medications List Reviewed: No (Patient to bring home med list today) Assessment And Plan - Plan Mr. Quigley is 64 y/o male pw SOB # Dyspnea- Patient was hypoxic on presentation per ER physician. dyspnea 2/2 influenza & CAP. -Continue supplemental oxygen -supplemental oxygen as needed -D Dimer mildly elevated. VQ scan is neg. -Duoneb. #Influenza A positive- on Tamiflu -monitor VS -No leukocytosis. -Unclear why patient was given vaccinations while febrile. DW nursing staff #CAP- infiltrates on CT chest -continue IV abx -monitor VS #Hypertension- hold lisinopril due to RADHA -Continue metoprolol cautiously -IV hydralazine prn #RADHA- prerenal azotemia due to hypovolemia. - Cr is improving. -Avoid nephrotoxin, trend cr. -IVF #Thrombocytopenia- due to acute illness. Monitor #DVT ppx- SCD Patient is full code Dispo- pending clinical improvement.
[2019-06-19] MEDS: Levofloxacin500mg IV 500 MG/100 ML BAG IV SCH (12:38)
[2019-06-19] MEDS: LEVALBUTEROL 1.25 MG/3 ML NEB NEB PRN (13:45)
[2019-06-19] MEDS: IPRATROPIUM BROM 0.5MG/2.5ML NEB PRN (13:45)
[2019-06-20 07:25] LABS: Potassium 4.1 mmol/L (3.5-5.1)
[2019-06-20] MEDS: OSELTAMIVIR 75 MG CAP PO SCH (09:16)
[2019-06-20] MEDS: NA CHLORIDE 0.9% 1,000 ML IV SCH (09:18)
[2019-06-20 10:08] VITALS: O2SAT 95
[2019-06-20 11:05] LABS: Absolute Lymphocytes (CBC) 1.4 K/uL (0.7-4.9); Basophils % 0.6 % (0-1.3); Hematocrit 36.4 % (39.6-49.0); Lymphocytes % 30.8 % (15.3-44.8); MPV 7.1 fL (7.6-11.3); RBC Red Blood Cell Count 4.08 M/uL (4.33-5.43)
[2019-06-20 11:32] LABS: Blood Morphology Comment NOT SEEN (NOT SEEN); Platelet Estimate ADEQ
[2019-06-20] MEDS: Levofloxacin500mg IV 500 MG/100 ML BAG IV SCH (12:13)
--- NOTE | 2019-06-20 12:51 | P.DS ---
Admission Date: 06/18/19 Discharge Date: 06/20/19 Disposition: ROUTINE DISCHARGE Discharge Condition: GOOD Reason for Admission: Shortness of breath Brief History of Present Illness: Mr. Quigley is a 64-year-old male with a history of hypertension who presented to the ER with complaints of shortness of breath. His symptoms started 2 days ago with malaise, fatigue, nonproductive cough and progressed to shortness of breath this morning. Patient had a sick contact at home with his daughter having similar symptoms. He also reported subjective fever, poor appetite and decreased oral intake. Hospital Course: Initial evaluation with nasopharyngeal swab was positive for influenza A. Patient was initiated on Tamiflu and breathing treatments given hypoxia. He continued to be febrile requiring further investigation with CT chest which revealed right upper lobe infiltrate consistent with community-acquired pneumonia. He was also initiated on oral antibiotics and did improve, weaned off supplemental oxygen. Patient had a pre renal azotemia on presentation due to acute illness, improved with IV hydration. His blood pressure remained stable with metoprolol only. His lisinopril is currently on hold until he follows up with his PCP for further evaluation and management of hypertension. Patient remained hemodynamically stable for discharge. Vital Signs/Physical Exam: Temp Pulse Resp BP Pulse Ox 97.2 F 57 18 129/72 95 06/20/19 08:00 06/20/19 08:00 06/20/19 08:00 06/20/19 08:00 06/20/19 08:00 General: Alert, In no apparent distress HEENT: Atraumatic, PERRLA, EOMI Neck: Supple, JVD not distended Respiratory: Clear to auscultation bilaterally, Normal air movement Cardiovascular: Regular rate/rhythm, Normal S1 S2 Gastrointestinal: Normal bowel sounds, No tenderness Musculoskeletal: No tenderness Integumentary: No rashes Neurological: Normal speech, Normal tone, Normal affect Lymphatics: No axilla or inguinal lymphadenopathy Laboratory Data at Discharge: WBC 4.7 K/uL (4.3-10.9) D 06/20/19 10:41 Hgb 12.4 g/dL (13.6-17.9) L 06/20/19 10:41 Hct 36.4 % (39.6-49.0) L 06/20/19 10:41 Plt Count 173 K/uL (152-406) D 06/20/19 10:41 PT 12.1 SECONDS (9.5-12.5) 06/17/19 08:45 INR 1.03 06/17/19 08:45 Sodium 142 mmol/L (136-145) 06/20/19 06:48 Potassium 4.1 mmol/L (3.5-5.1) 06/20/19 06:48 BUN 12 mg/dL (7-18) 06/20/19 06:48 Creatinine 1.13 mg/dL (0.55-1.3) 06/20/19 06:48 Glucose 88 mg/dL (74-106) 06/20/19 06:48 Magnesium 2.0 mg/dL (1.8-2.4) 06/17/19 08:45 Total Bilirubin 0.4 mg/dL (0.2-1.0) 06/19/19 08:57 AST 35 U/L (15-37) 06/19/19 08:57 ALT 35 U/L (12-78) 06/19/19 08:57 Alkaline Phosphatase 67 U/L (45-117) 06/19/19 08:57 Lipase 179 U/L (73-393) 06/17/19 08:45 Home Medications: Metoprolol Succinate [Toprol Xl*] 25 mg PO [id number] 04/03/17 Aspirin Chewable [Aspirin Chewable*] 81 mg PO DAILY 06/17/19 Fish Oil/Dha/Epa [Fish Oil 1,200 mg Fish Oil] 1 each PO DAILY 06/17/19 Multivit-Mins/Iron/Folic/Lycop [Centrum Men's Tablet] 1 each PO DAILY 06/17/19 Nortriptyline HCl 25 mg PO Q12H 06/17/19 OXcarbazepine [Oxcarbazepine] 300 mg PO BID 06/17/19 Oseltamivir [Tamiflu*] 75 mg PO BID #5 cap 06/20/19 levoFLOXacin [Levofloxacin] 500 mg PO DAILY #5 tablet 06/20/19 New Medications: levoFLOXacin [Levofloxacin] 500 mg PO DAILY #5 tablet Oseltamivir [Tamiflu*] 75 mg PO BID #5 cap Diet: AHA Activity: Ad mckay Followup: Mati Doran MD [Primary Care Provider] - 1 Week
[2019-06-20 14:02] VITALS: BP 126/85; TEMP 97.3
== END 2019-06-20 13:21 | disposition home or self-care (01) | DRG 194 ==
LOC: ER 07:49 → ERHOLD 13:10 → 2ND 14:17 → OBSVTOIN 06-18 18:07
PROVIDERS: ADMIT Hospitalist; ATTEND Hospitalist
DX: J18.9 Pneumonia, unspecified organism (principal); N17.9 Acute kidney failure, unspecified; J09.X2 Influenza due to identified novel influenza A virus with other respiratory manifestations; I10 Essential (primary) hypertension; D69.6 Thrombocytopenia, unspecified
CPT/HCPCS: 36415; 71046; 71250; 78582; 80048; 80053; 80076; 81003; 83605; 83690; 83735; 83880; 84145; 84484; 85025; 85379; 85610; 87040; 87804; 90471; 90670; 93005; 93970; 96361; 96365; 96375; 99285; A9540; A9558; G0378; J0456; J2405; J2930; J7030; Q2035

== ENCOUNTER 2019-07-18 12:48 | Emergency (ER) | payer BC ==
[2019-07-18] MEDS ORDERED: PANTOPRAZOLE 40 MG INJ ONE (13:48)
[2019-07-18] MEDS ORDERED: METHYLPREDNISOLONE 125 MG INJ ONE (13:48)
[2019-07-18] MEDS ORDERED: ALBUTEROL 2.5 MG/3 ML NEB SOL ONE (13:48)
--- NOTE | 2019-07-18 13:50 | RAD REPORT ---
EXAM DESCRIPTION: RAD - Chest Single View - 07/18/2019 1:30 pm CLINICAL HISTORY: DYSPNEA COMPARISON: Chest Pa And Lat (2 Views) dated 06/17/2019 TECHNIQUE: AP portable chest image was obtained 07/18/2019 1:30 pm . FINDINGS: Lungs are clear. Heart and vasculature are normal. No measurable pleural effusion and no p neumothorax. No acute bony abnormality seen. No acute aortic findings suspected. IMPRESSION: No acute cardiopulmonary process.
[2019-07-18 13:53] LABS: Absolute Lymphocytes (CBC) 1.4 K/uL (0.7-4.9); Hematocrit 35.2 % (39.6-49.0); Lymphocytes % 32.4 % (15.3-44.8); MPV 6.6 fL (7.6-11.3)
[2019-07-18 13:56] LABS: Protime INR 0.9
[2019-07-18 14:10] LABS: ALT/SGPT 37 U/L (12-78); AST/SGOT 38 U/L (15-37); Albumin 3.4 g/dL (3.4-5.0); Alkaline Phosphatase 84 U/L (45-117); BUN Blood Urea Nitrogen 8 mg/dL (7-18); Bicarbonate 25 mmol/L (21-32); Bilirubin Direct < 0.1 mg/dL (0-0.2); Bilirubin Total 0.2 mg/dL (0.2-1.0); Glucose Level 93 mg/dL (74-106); Magnesium 2.1 mg/dL (1.8-2.4); NT PRO-BNP 23 pg/mL (<125); Potassium 4.2 mmol/L (3.5-5.1); Protein, Total 6.2 g/dL (6.4-8.2); Sodium Level 128 mmol/L (136-145); Troponin (Emerg Dept Use Only) < 0.02 ng/mL (0.0-0.045)
--- NOTE | 2019-07-18 15:15 | ER ---
Nurse's Notes [facility] Name: Bert Quigley Age: 64 yrs Sex: Male : 1955 Arrival Date: 07/18/2019 Time: 12:49 Bed 3 Private MD: Mati Doran E Diagnosis: Syncope and collapse;Cough;Dysphagia Presentation: 07/18 13:05 Presenting complaint: Child states: was at the softball field and sipping water, began em to cough and began to choke, became unresponsive and started to foam at the mouth, lasted about 5-7 seconds, woke up and was asking "Is everything ok?" Hx of AAA, denies Hx of Sz, A\\T\\Ox 4 [employer], denies pain, has had a cough since about after being diagnosed with the flu. Transition of care: patient was not received from another setting of care. Onset of symptoms was July 18, 2019. Risk Assessment: Do you want to hurt yourself or someone else? Patient reports no desire to harm self or others. Initial Sepsis Screen: Does the patient meet any 2 criteria? No. Patient's initial sepsis screen is negative. Does the patient have a suspected source of infection? No. Patient's initial sepsis screen is negative. Care prior to arrival: None. 13:05 Method Of Arrival: Wheelchair em 13:05 Acuity: TIN 2 em Historical: - Allergies: 13:11 Cefoxitin Sodium; em - Home Meds: 13:11 Fish Oil Oral [Active]; lisinopril 10 mg Oral tab 1 tab [Active]; metoprolol succinate em 50 mg Oral Tb24 1 tab once daily [Active]; Metoprolol Tartrate Oral [Active]; Motrin Oral [Active]; nortriptyline 25 mg Oral cap [Active]; oxcarbazepine 300 mg Oral tab [Active]; - PMHx: 13:11 thoracic aneurysm; em - PSHx: 13:11 Carpal Tunnel Repair; neck sx; em - Immunization history:: Adult Immunizations up to date. - Coronavirus screen:: The patient has NOT traveled to [place] in the past 14 days. The patient has NOT had contact with known/suspected case of Coronavirus?. - Social history:: Smoking status: Patient denies any tobacco usage or history of. - Ebola Screening: : Patient negative for fever greater than or equal to 101.5 degrees Fahrenheit, and additional compatible Ebola Virus Disease symptoms Patient denies exposure to infectious person Patient denies travel to an Ebola-affected area in the 21 days before illness onset No symptoms or risks identified at this time. Screenin:12 Abuse screen: Denies threats or abuse. Nutritional screening: No deficits noted. em Tuberculosis screening: No symptoms or risk factors identified. Fall Risk None identified. Assessment: 13:10 General: Appears in no apparent distress. comfortable, Behavior is calm, cooperative, em appropriate for age, Denies fever. Pain: Denies pain. Neuro: Level of Consciousness is awake, alert, obeys commands, Oriented to person, place, time, situation, Appropriate for age. Cardiovascular: Denies chest pain, Capillary refill < 3 seconds Patient's skin is warm and dry. Rhythm is sinus rhythm. Respiratory: Reports cough that is productive, Airway is patent Respiratory effort is even, unlabored, Respiratory pattern is regular, symmetrical, Breath sounds are diminished bilaterally. Denies shortness of breath. Derm: Skin is intact, is healthy with good turgor, Skin is pink, warm \\T\\ dry. Musculoskeletal: Capillary refill < 3 seconds, Range of motion: intact in all extremities. 13:10 GI: Patient currently denies nausea, vomiting. em 14:21 Reassessment: Patient appears in no apparent distress at this time. Patient and/or em family updated on plan of care and expected duration. Pain level reassessed. Patient is alert, oriented x 3, equal unlabored respirations, skin warm/dry/pink. 15:53 Reassessment: Patient appears in no apparent distress at this time. Patient and/or em family updated on plan of care and expected duration. Pain level reassessed. Patient is alert, oriented x 3, equal unlabored respirations, skin warm/dry/pink. Patient denies pain at this time. Patient states feeling better. Vital Signs: 13:11 BP 137 / 93; Pulse 82; Resp 18; Temp 97.9(O); Pulse Ox 99% on R/A; Weight 95.25 kg; em Height 5 ft. 8 in. (172.72 cm); Pain 0/10; 14:21 BP 141 / 96; Pulse 76; Resp 18; Pulse Ox 100% on Nebulizer Mask; Pain 0/10; em 15:30 BP 129 / 86; Pulse 79; Resp 18; Pulse Ox 99% on R/A; Pain 0/10; em 13:11 Body Mass Index 31.93 (95.25 kg, 172.72 cm) em ED Course: 12:49 Patient arrived in ED. rg4 12:49 Mati Doran MD is Private Physician. rg4 12:54 [facility] jr8 12:54 Seferino Sanabria MD is Attending Physician. jr8 12:59 Juve Rossi, BRIDGETTE is Primary Nurse. em 13:10 Triage completed. em 13:11 Arm band placed on. em 13:12 Patient has correct armband on for positive identification. Placed in gown. Bed in low em position. Call light in reach. Side rails up X2. Adult w/ patient. threat monitoring analyst on. Pulse ox on. NIBP on. 13:40 Missed attempt(s): 22 gauge in right antecubital area. Bleeding controlled, band aid em applied, catheter tip intact. 13:55 Inserted saline lock: 22 gauge in right forearm, using aseptic technique. em 15:14 Zenon Wilson MD is Referral Physician. jr8 15:14 Mati Arshad MD is Referral Physician. jr8 15:58 No provider procedures requiring assistance completed. IV discontinued, intact, em bleeding controlled, No redness/swelling at site. Pressure dressing applied. Administered Medications: 13:51 Drug: Albuterol 2.5 mg Route: Inhalation; em 14:33 Follow up: Response: No adverse reaction; Marked relief of symptoms em 13:51 Drug: Albuterol 2.5 mg Route: Inhalation; em 13:51 Drug: Albuterol 2.5 mg Route: Inhalation; em 13:58 Drug: ProTONIX 40 mg Route: IVP; Site: right forearm; em 14:33 Follow up: Response: No adverse reaction em 14:00 Drug: SOLU-Medrol 125 mg Route: IVP; Site: right forearm; em 14:33 Follow up: Response: No adverse reaction em Outcome: 15:14 Discharge ordered by . jr8 15:58 Discharged to home ambulatory, with family. em 15:58 Condition: good 15:58 Discharge instructions given to patient, family, Instructed on discharge instructions, follow up and referral plans. medication usage, Demonstrated understanding of instructions, follow-up care, medications, Prescriptions given X 2. 16:01 Patient left the ED. em Signatures: Juve Rossi RN RN Alex Pearson PA PA jr8 Naina Eid rg4
--- NOTE | 2019-07-18 15:16 | EDPHYS ---
Physician Documentation [facility] Name: Bert Quigley Age: 64 yrs Sex: Male : 1955 Arrival Date: 07/18/2019 Time: 12:49 Bed 3 Private MD: Mati Doran E ED Physician Seferino Sanabria HPI: 07/18 13:50 This 64 yrs old Male presents to ER via Wheelchair with complaints of Passed jr8 Out Prior To Arrival. 13:50 The patient has experienced syncope, became unresponsive. Onset: The symptoms/episode jr8 began/occurred acutely, just prior to arrival, today. Duration: This was a single episode, that lasted 7 second(s). Context: the episode(s) was witnessed, by family, daughter, occurred at home, occurred while the patient was at rest, Just prior to the episode the patient experienced coughing. Associated injury: The patient did not suffer any apparent associated injury. Associated signs and symptoms: The patient has no apparent associated signs or symptoms. Current symptoms: Currently, the patient is not experiencing any symptoms, the patient feels back to baseline, no decreased level of consciousness, no confusion, no dysphasia, no headache, no paralysis, no visual changes. The patient has not experienced similar symptoms in the past. The patient has not recently seen a physician. Family stated that he has been having trouble swallowing as of lately. Stated that it is getting more persistent. Today had drank some water and started coughing. Stated that he was coughing so hard that he passed out. Has also been having persistent cough the past month. Had pneumonia and flu. Was put on steroids and zithromax but still coughing . Historical: - Allergies: 13:11 Cefoxitin Sodium; em - Home Meds: 13:11 Fish Oil Oral [Active]; lisinopril 10 mg Oral tab 1 tab [Active]; metoprolol succinate em 50 mg Oral Tb24 1 tab once daily [Active]; Metoprolol Tartrate Oral [Active]; Motrin Oral [Active]; nortriptyline 25 mg Oral cap [Active]; oxcarbazepine 300 mg Oral tab [Active]; - PMHx: 13:11 thoracic aneurysm; em - PSHx: 13:11 Carpal Tunnel Repair; neck sx; em - Immunization history:: Adult Immunizations up to date. - Coronavirus screen:: The patient has NOT traveled to [place] in the past 14 days. The patient has NOT had contact with known/suspected case of Coronavirus?. - Social history:: Smoking status: Patient denies any tobacco usage or history of. - Ebola Screening: : Patient negative for fever greater than or equal to 101.5 degrees Fahrenheit, and additional compatible Ebola Virus Disease symptoms Patient denies exposure to infectious person Patient denies travel to an Ebola-affected area in the 21 days before illness onset No symptoms or risks identified at this time. ROS: 13:50 Eyes: Negative for injury, pain, redness, and discharge, ENT: Negative for injury, jr8 pain, and discharge, Neck: Negative for injury, pain, and swelling, Cardiovascular: Negative for chest pain, palpitations, and edema, Abdomen/GI: Negative for abdominal pain, nausea, vomiting, diarrhea, and constipation, Back: Negative for injury and pain, MS/Extremity: Negative for injury and deformity, Skin: Negative for injury, rash, and discoloration. 13:50 Respiratory: Positive for cough, Negative for dyspnea on exertion, shortness of breath, sputum production. 13:50 Neuro: Positive for syncope. Exam: 13:50 Eyes: Pupils equal round and reactive to light, extra-ocular motions intact. Lids and jr8 lashes normal. Conjunctiva and sclera are non-icteric and not injected. Cornea within normal limits. Periorbital areas with no swelling, redness, or edema. ENT: Nares patent. No nasal discharge, no septal abnormalities noted. Tympanic membranes are normal and external auditory canals are clear. Oropharynx with no redness, swelling, or masses, exudates, or evidence of obstruction, uvula midline. Mucous membranes moist. Neck: Trachea midline, no thyromegaly or masses palpated, and no cervical lymphadenopathy. Supple, full range of motion without nuchal rigidity, or vertebral point tenderness. No Meningismus. Cardiovascular: Regular rate and rhythm with a normal S1 and S2. No gallops, murmurs, or rubs. Normal PMI, no JVD. No pulse deficits. Respiratory: Lungs have equal breath sounds bilaterally, clear to auscultation and percussion. No rales, rhonchi or wheezes noted. No increased work of breathing, no retractions or nasal flaring. Abdomen/GI: Soft, non-tender, with normal bowel sounds. No distension or tympany. No guarding or rebound. No evidence of tenderness throughout. Back: No spinal tenderness. No costovertebral tenderness. Full range of motion. Skin: Warm, dry with normal turgor. Normal color with no rashes, no lesions, and no evidence of cellulitis. MS/ Extremity: Pulses equal, no cyanosis. Neurovascular intact. Full, normal range of motion. Neuro: Awake and alert, GCS 15, oriented to person, place, time, and situation. Cranial nerves II-XII grossly intact. Motor strength 5/5 in all extremities. Sensory grossly intact. Cerebellar exam normal. Normal gait. 13:53 ECG was reviewed by the Attending Physician. [facility] Vital Signs: 13:11 BP 137 / 93; Pulse 82; Resp 18; Temp 97.9(O); Pulse Ox 99% on R/A; Weight 95.25 kg; em Height 5 ft. 8 in. (172.72 cm); Pain 0/10; 14:21 BP 141 / 96; Pulse 76; Resp 18; Pulse Ox 100% on Nebulizer Mask; Pain 0/10; em 15:30 BP 129 / 86; Pulse 79; Resp 18; Pulse Ox 99% on R/A; Pain 0/10; em 13:11 Body Mass Index 31.93 (95.25 kg, 172.72 cm) em MDM: 12:55 Patient medically screened. mira 15:12 Data reviewed: vital signs, nurses notes, lab test result(s), EKG, radiologic studies, [facility] plain films. Data interpreted: Pulse oximetry: on room air is 100 %. Interpretation: normal. 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 ED course: Will put patient on omeprazole and medrol dose pack. Needs to see pulmonology and GI. Also discussed seeing PCP for possible withdrawal of Lisinopril as well and switching to another adjunctive med to see if we can further r/o cough . 07/18 13:07 Order name: Basic Metabolic Panel 07/18 13:07 Order name: CBC with Diff 07/18 13:07 Order name: LFT's 07/18 13:07 Order name: Magnesium 07/18 13:07 Order name: NT PRO-BNP 07/18 13:07 Order name: PT-INR 07/18 13:07 Order name: Troponin (emerg Dept Use Only) 07/18 13:55 Order name: CBC with Automated Diff; Complete Time: 14:01 EDMS 07/18 14:09 Order name: Protime (+INR); Complete Time: 14:44 EDMS 07/18 14:13 Order name: Basic Metabolic Panel; Complete Time: 14:44 EDMS 07/18 14:13 Order name: Liver (Hepatic) Function; Complete Time: 14:44 EDMS 07/18 14:13 Order name: Troponin (Emerg Dept Use Only); Complete Time: 14:44 EDMS 07/18 14:13 Order name: NT PRO-BNP; Complete Time: 14:44 EDMS 07/18 14:13 Order name: Magnesium; Complete Time: 14:44 EDMS 07/18 13:07 Order name: XRAY Chest (1 view) 07/18 13:07 Order name: EKG; Complete Time: 13:09 07/18 13:07 Order name: Cardiac monitoring; Complete Time: 13:43 07/18 13:07 Order name: EKG - Nurse/Tech; Complete Time: 13:42 07/18 13:07 Order name: IV Saline Lock; Complete Time: 14:37 07/18 13:07 Order name: Labs collected and sent; Complete Time: 13:42 07/18 13:07 Order name: O2 Per Protocol; Complete Time: 13:42 07/18 13:07 Order name: O2 Sat Monitoring; Complete Time: 13:42 07/18 15:43 Order name: RAD; Complete Time: 15:49 EDMS EC:53 Rate is 76 beats/min. Rhythm is regular, Normal Sinus Rhythm. QRS [place] is Normal. MD jr8 interval is normal at 180 msec. QRS interval is normal at 108 msec. QT interval is normal at 427 msec. No Q waves. T waves are Normal. No ST changes noted. Clinical impression: Normal ECG and No evidence of ischemia. Interpreted by me. Reviewed by me. Administered Medications: 13:51 Drug: Albuterol 2.5 mg Route: Inhalation; em 14:33 Follow up: Response: No adverse reaction; Marked relief of symptoms em 13:51 Drug: Albuterol 2.5 mg Route: Inhalation; em 13:51 Drug: Albuterol 2.5 mg Route: Inhalation; em 13:58 Drug: ProTONIX 40 mg Route: IVP; Site: right forearm; em 14:33 Follow up: Response: No adverse reaction em 14:00 Drug: SOLU-Medrol 125 mg Route: IVP; Site: right forearm; em 14:33 Follow up: Response: No adverse reaction em Disposition: 07/18/19 15:14 Discharged to Home. Impression: Syncope and collapse, Cough, Dysphagia. - Condition is Stable. - Discharge Instructions: Dysphagia, Syncope, Cough, Adult. - Prescriptions for omeprazole 40 mg Oral capsule,delayed release(DR/EC) - take 1 capsule by ORAL route once daily before a meal; 30 capsule. Medrol (Aries) 4 mg Oral Tablets, Dose Pack - take 1 tablet by ORAL route as directed - follow package instructions; 1 packet. - Medication Reconciliation Form, Thank You Letter, Antibiotic Education, Prescription Opioid Use form. - Follow up: Zenon Wilson MD; When: 2 - 3 days; Reason: Recheck today's complaints, Continuance of care, Re-evaluation by your physician. Follow up: Mati Arshad MD; When: 2 - 3 days; Reason: Recheck today's complaints, Continuance of care, Re-evaluation by your physician. - Problem is new. - Symptoms have improved. Addendum: 07/20/2019 08:23 Co-signature as Attending Physician, Seferino Sanabria MD I agree with the assessment and c dow plan of care. Signatures: Dispatcher [employer] Seferino Jessica MD MD cha Munoz, Edgar, RN RN Alex Pearson PA PA jr8 Corrections: (The following items were deleted from the chart) 07/18 16:01 15:14 07/18/2019 15:14 Discharged to Home. Impression: Syncope and collapse; Cough; em Dysphagia. Condition is Stable. Forms are Medication Reconciliation Form, Thank You Letter, Antibiotic Education, Prescription Opioid Use. Follow up: Zenon Wilson; When: 2 - 3 days; Reason: Recheck today's complaints, Continuance of care, Re-evaluation by your physician. Follow up: Mati Arshad; When: 2 - 3 days; Reason: Recheck today's complaints, Continuance of care, Re-evaluation by your physician. Problem is new. Symptoms have improved. jr8
--- NOTE | 2019-07-19 14:28 | EKG ---
Test Date: 2019-07-18 Test Time: 13:03:00 Loan Manager: ELDER MEASUREMENT RESULTS: Intervals: Rate: 76 WA: 180 QRSD: 108 QT: 380 QTc: 427 [place]: P: 56 WA: 180 QRS: -6 T: 54 INTERPRETIVE STATEMENTS: Normal sinus rhythm Normal ECG Compared to ECG 06/17/2019 08:57:28 Sinus tachycardia no longer present Electronically Signed On 07-19-19 14:27:57 LUSTER REPAIRER by David Hurley
== END 2019-07-18 16:01 | disposition home or self-care (01) ==
LOC: ER 12:48
DX: R55 Syncope and collapse (principal); R05 Cough; R13.10 Dysphagia, unspecified; Z88.8 Allergy status to other drugs, medicaments and biological substances
CPT/HCPCS: 93005; 85025; 80048; 36415; 83735; 85610; 80076; 84484; 83880; 71045; 96375; 96374; 99285; C9113; J2930

== ENCOUNTER 2020-01-18 09:20 | Emergency (ER) | payer OTHER ==
--- OUTSIDE RECORDS SUMMARY | 2020-01-18 09:23 | XMS REPORT | Clinical Summary ---
:1955 Author Organization [facility] Address [address] [place] [id number] Care Team Providers Name Role Phone Mati Doran MD Primary Care Provider Allergies Active Allergy Reactions Severity Noted Date Comments Cefoxitin 07/17/2017 Medications Medication Sig Dispensed Refills Start Date End Date Status atorvastatin (LIPITOR) TK 1 T PO QHS 5 06/12/2017 Active 20 MG tablet lisinopril TK 1 T PO QD 3 04/30/2017 Activ e (PRINIVIL,ZESTRIL) 10 mg tablet metoprolol succinate XL TK 1 T PO QD 3 04/30/2017 Active (TOPROL-XL) 25 mg 24 hr tablet vitamins Take by mouth. 0 Activ e A,C,Y-kzep-cyfnen (PRESERVISION AREDS) [id number] ujws-by-ueaq capsule omega 4-avq-ovu-fish oil Take by mouth. 0 Active (FISH OIL) 100-160-1,000 mg capsule aspirin (ECOTRIN) 81 MG Take 81 mg by 0 Active enteric coated tablet mouth daily. Active Problems Not on file Family History Medical History Relation Name Comments Cancer Brother Blood Cancer No Known Problems Father No Known Problems Maternal Aunt No Known Problems Maternal Grandfather No Known Problems Maternal Grandmother No Known Problems Maternal Uncle No Known Problems Mother No Known Problems Paternal Aunt No Known Problems Paternal Grandfather No Known Problems Paternal Grandmother No Known Problems Paternal Uncle No Known Problems Sister Relation Name Status Comments Brother Father Maternal Aunt Maternal Grandfather Maternal Grandmother Maternal Uncle Mother Paternal Aunt Paternal Grandfather Paternal Grandmother Paternal Uncle Sister Social History Tobacco Use Types Packs/Day Years Used Date Never Smoker Smokeless Tobacco: Never Used Alcohol Use Drinks/Week oz/Week Comments Yes Sex Assigned at Date Recorded Not on file Job Start Date Occupation Industry Not on file Not on file Not on file Travel History Travel Start Travel End No recent travel history available. 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
[2020-01-18] MEDS ORDERED: MEPERIDINE HCL 50 MG/ML ONE (10:32)
[2020-01-18] MEDS ORDERED: ONDANSETRON 4 MG/2 ML VIAL ONE (10:33)
[2020-01-18 10:41] LABS: Basophils % 1.1 % (0-1.3); Hematocrit 42.3 % (39.6-49.0); Lymphocytes % 28.3 % (15.3-44.8); MPV 7.8 fL (7.6-11.3); RBC Red Blood Cell Count 4.82 M/uL (4.33-5.43)
[2020-01-18 10:50] LABS: ALT/SGPT 39 U/L (12-78); AST/SGOT 35 U/L (15-37); Alkaline Phosphatase 87 U/L (45-117); BUN Blood Urea Nitrogen 22 mg/dL (7-18); Bicarbonate 22 mmol/L (21-32); Bilirubin Direct < 0.1 mg/dL (0-0.2); Bilirubin Total 0.5 mg/dL (0.2-1.0); Glucose Level 103 mg/dL (74-106); Lipase 161 U/L (73-393); Potassium 4.2 mmol/L (3.5-5.1); Protein, Total 7.8 g/dL (6.4-8.2); Sodium Level 139 mmol/L (136-145)
--- NOTE | 2020-01-18 12:05 | RAD REPORT ---
EXAM DESCRIPTION: CT - Abdomen Pelvis W Contrast - 01/18/2020 11:50 am CLINICAL HISTORY: Abdominal pain. COMPARISON: 2014 TECHNIQUE: Computed axial tomography of the abdomen and pelvis was obtained. 100 cc Isovue-300 is ad ministered intravenously. Oral contrast was given. All CT scans are performed using dose optimization technique as appropriate and may include automated exposure control or mA/KV adjustment according to patient size. FINDINGS: Splenic granulomata. The liver, pancreas, adrenals and left kidney are unremarkable. 3.5 centimeter right renal cyst. The appendix is normal caliber. There is no evidence of diverticulitis IMPRESSION: No acute abnormality displayed
[2020-01-18] MEDS ORDERED: NA CHLORIDE 0.9% 500 ML ONE (12:09)
--- NOTE | 2020-01-18 12:22 | ER ---
Nurse's Notes [facility] Name: Bert Quigley Age: 64 yrs Sex: Male : 1955 Arrival Date: 01/18/2020 Time: 09:22 Bed 19 Private MD: Mati Doran E Diagnosis: Generalized abdominal pain Presentation: 01/17 09:52 Chief complaint: Patient states: abdominal pain since 3 weeks, more on the lower area, ca1 has gotten worse everyday. Denies N/V/D. Coronavirus screen: Client denies travel out of the [place] in the last 14 days. At this time, the client does not indicate any symptoms associated with coronavirus-19. Ebola Screen: Patient negative for fever greater than or equal to 101.5 degrees Fahrenheit, and additional compatible Ebola Virus Disease symptoms Patient denies exposure to infectious person. Patient denies travel to an Ebola-affected area in the 21 days before illness onset. No symptoms or risks identified at this time. Initial Sepsis Screen: Does the patient meet any 2 criteria? No. Patient's initial sepsis screen is negative. Does the patient have a suspected source of infection? No. Patient's initial sepsis screen is negative. Risk Assessment: Do you want to hurt yourself or someone else? Patient reports no desire to harm self or others. Onset of symptoms was January 18, 2020. 09:52 Method Of Arrival: Ambulatory ca1 09:52 Acuity: TIN 3 ca1 Historical: - Allergies: 09:56 Cefoxitin Sodium; ca1 - PMHx: 09:56 thoracic aneurysm; Hypertension; ca1 - PSHx: 09:56 Carpal Tunnel Repair; neck sx; ca1 - Immunization history:: Adult Immunizations up to date. - Social history:: Smoking status: Patient denies any tobacco usage or history of. - Family history:: not pertinent. - Hospitalizations: : No recent hospitalization is reported. Screenin:30 Abuse screen: Denies threats or abuse. Denies injuries from another. Nutritional jl7 screening: No deficits noted. Tuberculosis screening: No symptoms or risk factors identified. Fall Risk IV access (20 points). Total Herrera Fall Scale indicates No Risk (0-24 pts). Assessment: 10:00 General: Appears in no apparent distress. uncomfortable, Behavior is calm, cooperative, jl7 appropriate for age. Pain: Complains of pain in abdomen diffusely Pain currently is 5 out of 10 on a pain scale. Quality of pain is described as aching, Is continuous. Neuro: Level of Consciousness is awake, alert, obeys commands, Oriented to person, place, time, situation. Cardiovascular: Patient's skin is warm and dry. Respiratory: Airway is patent Respiratory effort is even, unlabored, Respiratory pattern is regular, symmetrical. GI: Abdomen is round distended, Bowel sounds hypoactive in right upper quadrant, left upper quadrant, right lower quadrant and left lower quadrant Abdomen is tender to palpation X 4 quads. : No signs and/or symptoms were reported regarding the genitourinary system. Derm: Skin is pink, warm \T\ dry. 10:33 Reassessment: Pt finished drinking oral contrast, CT notified. jl7 11:00 Reassessment: Patient appears in no apparent distress at this time. Patient and/or jl7 family updated on plan of care and expected duration. Pain level reassessed. Patient is alert, oriented x 3, equal unlabored respirations, skin warm/dry/pink. 12:00 Reassessment: Patient appears in no apparent distress at this time. Patient and/or jl7 family updated on plan of care and expected duration. Pain level reassessed. Patient is alert, oriented x 3, equal unlabored respirations, skin warm/dry/pink. Vital Signs: 09:52 BP 125 / 96; Pulse 97; Resp 15 S; Temp 99.1(O); Pulse Ox 97% on R/A; Weight 99.79 kg ca1 (R); Height 5 ft. 8 in. (172.72 cm) (R); Pain 5/10; 10:30 BP 126 / 97; Pulse 93; Resp 17; Pulse Ox 95% ; jl7 12:13 BP 108 / 90; Pulse 80; Resp 17; Pulse Ox 99% ; jl7 09:52 Body Mass Index 33.45 (99.79 kg, 172.72 cm) ca1 ED Course: 09:22 Patient arrived in ED. ag5 09:22 Mati Doran MD is Private Physician. ag5 09:55 Triage completed. ca1 09:56 Neo Ramesh MD is Attending Physician. rn 09:56 Dorothy Sanford RN is Primary Nurse. jl7 09:56 Arm band placed on right wrist. ca1 10:10 Initial lab(s) drawn, by me, sent to lab. Inserted saline lock: 20 gauge in right jl7 antecubital area, using aseptic technique. Blood collected. 10:30 Patient has correct armband on for positive identification. Placed in gown. Bed in low jl7 position. Call light in reach. Side rails up X 1. Pulse ox on. NIBP on. 10:45 XRAY Chest (1 view) In Process Unspecified. EDMS 11:50 CT Abd/Pelvis - PO and IV Contrast In Process Unspecified. EDMS 12:59 No provider procedures requiring assistance completed. IV discontinued, intact, jl7 bleeding controlled, No redness/swelling at site. Pressure dressing applied. Administered Medications: 10:26 Drug: Zofran (Ondansetron) 4 mg Route: IVP; Site: right antecubital; jl7 12:29 Follow up: Response: No adverse reaction jl7 10:28 Drug: Demerol 25 mg Route: IVP; Site: right antecubital; jl7 10:55 Follow up: Response: No adverse reaction; Pain is decreased jl7 12:00 Drug: NS 0.9% 500 ml Route: IV; Rate: bolus; Site: right antecubital; jl7 Outcome: 12:21 Discharge ordered by . rn 12:59 Discharged to home ambulatory. jl7 12:59 Condition: stable 12:59 Discharge instructions given to patient, Instructed on discharge instructions, follow up and referral plans. Demonstrated understanding of instructions, follow-up care. 12:59 Patient left the ED. jl7 Signatures: Dispatcher [employer] EDMS Neo Ramesh MD MD rn Leal, Jahala RN RN jl7 Sonia Workman RN RN Mc Ellis 5
--- NOTE | 2020-01-18 12:22 | EDPHYS ---
Physician Documentation [facility] Name: Bert Quigley Age: 64 yrs Sex: Male : 1955 Arrival Date: 01/18/2020 Time: 09:22 Bed 19 Private MD: Mati Doran E ED Physician Neo Ramesh HPI: 01/17 10:57 This 64 yrs old Male presents to ER via Ambulatory with complaints of rn Abdominal Pain. 10:57 The patient presents with abdominal pain in the lower abdomen. Onset: The rn symptoms/episode began/occurred 3 week(s) ago. The symptoms do not radiate. Associated signs and symptoms: Pertinent positives: nausea, Pertinent negatives: blood in stools, chest pain, constipation, fever, shortness of breath, testicular pain, vomiting, vomiting blood. Modifying factors: The symptoms are alleviated by nothing, the symptoms are aggravated by pressure, touching the area. Severity of pain: At its worst the pain was mild in the emergency department the pain is unchanged. The patient has not experienced similar symptoms in the past. Reports lower abd pain, + nausea, for 3 weeks, getting worse, no dark or bloody stool, appetite ok. No trauma. Has appt for GI but not for a while and didn't think could wait 2/2 pain.. Historical: - Allergies: 09:56 Cefoxitin Sodium; ca1 - PMHx: 09:56 thoracic aneurysm; Hypertension; ca1 - PSHx: 09:56 Carpal Tunnel Repair; neck sx; ca1 - Immunization history:: Adult Immunizations up to date. - Social history:: Smoking status: Patient denies any tobacco usage or history of. - Family history:: not pertinent. - Hospitalizations: : No recent hospitalization is reported. ROS: 10:57 Constitutional: Negative for fever, chills, and weight loss, Eyes: Negative for injury, rn pain, redness, and discharge, Neck: Negative for injury, pain, and swelling, Cardiovascular: Negative for chest pain, palpitations, and edema, Respiratory: Negative for shortness of breath, cough, wheezing, and pleuritic chest pain, Abdomen/GI: + abd pain, neg for blood in stool/diarrhea/constipation MS/Extremity: Negative for injury and deformity, Skin: Negative for injury, rash, and discoloration, Neuro: Negative for headache, weakness, numbness, tingling, and seizure. Exam: 10:57 Constitutional: This is a well developed, well nourished patient who is awake, alert, rn and in no acute distress. Head/Face: Normocephalic, atraumatic. Cardiovascular: Regular rate and rhythm. No pulse deficits. Respiratory: No increased work of breathing, no retractions or nasal flaring. Abdomen/GI: soft, + mild periumbilical tenderness, + bloated with tympany, no rebound, no hernia Skin: Warm, dry MS/ Extremity: Pulses equal, no cyanosis. Neurovascular intact. Full, normal range of motion. Equal circumference. Neuro: Awake and alert, GCS 15 Vital Signs: 09:52 BP 125 / 96; Pulse 97; Resp 15 S; Temp 99.1(O); Pulse Ox 97% on R/A; Weight 99.79 kg ca1 (R); Height 5 ft. 8 in. (172.72 cm) (R); Pain 5/10; 10:30 BP 126 / 97; Pulse 93; Resp 17; Pulse Ox 95% ; jl7 12:13 BP 108 / 90; Pulse 80; Resp 17; Pulse Ox 99% ; jl7 09:52 Body Mass Index 33.45 (99.79 kg, 172.72 cm) ca1 MDM: 09:56 Patient medically screened. rn 12:19 Differential diagnosis: appendicitis, bowel obstruction, diverticulitis, gastritis, rn gastroesophageal reflux disease, non-specific abd pain, pancreatitis, Peptic Ulcer Disease. Data reviewed: vital signs, nurses notes, lab test result(s), radiologic studies, CT scan, and as a result, I will discharge patient. Counseling: I had a detailed discussion with the patient and/or guardian regarding: the historical points, exam findings, and any diagnostic results supporting the discharge/admit diagnosis, lab results, radiology results, the need for outpatient follow up, to return to the emergency department if symptoms worsen or persist or if there are any questions or concerns that arise at home. Response to treatment: the patient's symptoms have mildly improved after treatment, and as a result, I will discharge patient. Special discussion: Based on the patient's Hx, exam, and Dx evaluation, there is no indication for emergent surgery or inpatient Tx. It is understood by the patient/guardian that if the Sx's persist or worsen they need to return immediately for re-evaluation. I discussed with the patient/guardian in detail that at this point there is no indication for admission to the hospital. It is understood, however, that if the symptoms persist or worsen the patient needs to return immediately for re-evaluation. ED course: Pt with neg bloodwork and CT abdomen, spoke with Dr. Madrid regarding patient, recommends GI f/u, which patient has next week for scope. Return precautions given and understood. Declines pain medication.. 01/17 10:05 Order name: Basic Metabolic Panel; Complete Time: 11:43 rn 01/17 10:05 Order name: CBC with Diff; Complete Time: :43 rn 01/17 10:05 Order name: Hepatic Function; Complete Time: : rn 01/17 10:05 Order name: Lipase; Complete Time: 11:43 rn 01/17 10:05 Order name: CT Abd/Pelvis - PO and IV Contrast; Complete Time: 12:14 rn 01/17 10:05 Order name: XRAY Chest (1 view) rn 01/17 10:05 Order name: IV Saline Lock; Complete Time: 10:19 rn 01/17 10:05 Order name: Labs collected and sent; Complete Time: 12:10 rn Administered Medications: 10:26 Drug: Zofran (Ondansetron) 4 mg Route: IVP; Site: right antecubital; jl7 12:29 Follow up: Response: No adverse reaction jl7 10:28 Drug: Demerol 25 mg Route: IVP; Site: right antecubital; jl7 10:55 Follow up: Response: No adverse reaction; Pain is decreased jl7 12:00 Drug: NS 0.9% 500 ml Route: IV; Rate: bolus; Site: right antecubital; jl7 Disposition: 01/18/20 12:21 Discharged to Home. Impression: Generalized abdominal pain. - Condition is Stable. - Discharge Instructions: Abdominal Pain, Adult. - Medication Reconciliation Form, Thank You Letter, Antibiotic Education, Prescription Opioid Use form. - Follow up: Private Physician; When: As needed; Reason: Recheck today's complaints, Re-evaluation by your physician. - Problem is an ongoing problem. - Symptoms have improved. Signatures: Dispatcher [employer] EDMS Neo Ramesh MD MD rn Leal, Jahala, RN RN jl7 Sonia Workman RN RN ca1 Corrections: (The following items were deleted from the chart) 12:29 10:05 Urine Dipstick-Ancillary ordered. stella zhao 12:59 12:21 01/18/2020 12:21 Discharged to Home. Impression: Generalized abdominal pain. jl7 Condition is Stable. Forms are Medication Reconciliation Form, Thank You Letter, Antibiotic Education, Prescription Opioid Use. Follow up: Private Physician; When: As needed; Reason: Recheck today's complaints, Re-evaluation by your physician. Problem is an ongoing problem. Symptoms have improved. rn
--- NOTE | 2020-01-18 12:28 | RAD REPORT ---
EXAM DESCRIPTION: Stacia Single View01/18/2020 10:45 am CLINICAL HISTORY: Fever COMPARISON: November 2019 FINDINGS: The lungs appear clear of acute infiltrate. The heart is normal size IMPRESSION: No acute abnormalities displayed
[2020-01-18 13:06] VITALS: TEMP 99.1
[2020-01-18 13:09] VITALS: BP 108/90; O2SAT 99
== END 2020-01-18 12:59 | disposition home or self-care (01) ==
LOC: ER 09:20
DX: R10.84 Generalized abdominal pain (principal); I10 Essential (primary) hypertension; Z88.8 Allergy status to other drugs, medicaments and biological substances
CPT/HCPCS: 85025; 80048; 36415; 80076; 83690; 74177; 71045; Q9967; J2175; J7040; J2405; 96374; 96375; 99284

== ENCOUNTER 2020-04-02 01:49 | Emergency (ER) | payer OTHER ==
--- OUTSIDE RECORDS SUMMARY | 2020-04-02 01:52 | XMS REPORT | Clinical Summary ---
:1955 Author Organization [facility] Address [address] [place] [id number] Care Team Providers Name Role Phone Espinoza Jamil MD, Mati Primary Care Provider Allergies Active Allergy Reactions [...] vitamins Take by mouth. 0 Activ e A,C,E-vdrh-wvgonx (PRESERVISION AREDS) [id number] wdze-hp-aoar capsule omega 2-gys-ecv-fish oil Take by mouth. 0 Active (FISH OIL) 100-160-1,000 mg capsule aspirin (ECOTRIN) 81 MG Take 81 mg by 0 Active enteric coated tablet mouth daily. 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 Renal insufficiency Hypertension Chest pain Acid reflux [place] (obstructive sleep apnea) Asbestosis (HCC) Family History Medical History Relation Name Comments [...] Assigned at Date Recorded Not on file Last Filed Vital Signs Not on file Plan of Treatment Health Maintenance Due Date Last Done Comments COLONOSCOPY SCREENING 02/15/2004 SHINGLES VACCINES (#1) 02/15/2004 65+ PNEUMOCOCCAL VACCINE (1 of 1 - PPSV23) 2019 INFLUENZA VACCINE 01/02/2020 Results Not on fileafter 04/02/2019 Insurance Payer Benefit Plan / Subscriber ID Effective Phone Address T ype Group Dates BCBS BCBS CHOICE [id number] 2017-Pres PPO PPO/FEDERAL EMPL ent PPO COMMERCIAL MISC MISC COMMERCIAL [id number] 2018-Prese Commercial nt Advance Directives For more information, please contact: [phone] Type Date 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
[2020-04-02 02:34] LABS: Absolute Lymphocytes (CBC) 1.9 K/uL (0.7-4.9); Basophils % 1.4 % (0-1.3); Hematocrit 41.8 % (39.6-49.0); Lymphocytes % 37.7 % (15.3-44.8); MPV 7.6 fL (7.6-11.3); RBC Red Blood Cell Count 4.78 M/uL (4.33-5.43)
[2020-04-02 02:35] LABS: Protime INR 0.87
[2020-04-02 02:43] LABS: Potassium 3.9 mmol/L (3.5-5.1)
[2020-04-02] MEDS ORDERED: FOLIC ACID 5 MG/ML VIAL ONE (03:30)
[2020-04-02] MEDS ORDERED: ASPIRIN 81 MG CHEWABLE TABLET ONE (03:30)
--- NOTE | 2020-04-02 05:37 | ER ---
Nurse's Notes [facility] Name: Bert Quigley Age: 65 yrs Sex: Male : 1955 Arrival Date: 04/02/2020 Time: 01:53 Bed 4 Private MD: Diagnosis: Dizziness and giddiness;Visual disturbances;Transient cerebral ischemic attack, unspecified Presentation: 04/02 02:02 Chief complaint: Patient states: i have dizziness whole night, headache and nausea. \T\ mg2 1230 i tried calling my daughter but i have trouble seeing her number on my phone. Coronavirus screen: Client denies travel out of the [place] in the last 14 days. Ebola Screen: No symptoms or risks identified at this time. Initial Sepsis Screen: Does the patient meet any 2 criteria? No. Patient's initial sepsis screen is negative. Does the patient have a suspected source of infection? No. Patient's initial sepsis screen is negative. Risk Assessment: Do you want to hurt yourself or someone else? Patient reports no desire to harm self or others. Onset of symptoms was April 01, 2020. 02:02 Method Of Arrival: Wheelchair mg2 02:02 Acuity: TIN 3 mg2 Historical: - Allergies: 02:06 Cefoxitin Sodium; mg2 - Home Meds: 02:23 lisinopril 10 mg Oral tab 1 tab [Active]; metoprolol succinate 50 mg Oral Tb24 1 tab mg2 once daily [Active]; Metoprolol Tartrate Oral [Active]; Motrin Oral [Active]; nortriptyline 25 mg Oral tab [Active]; oxcarbazepine 300 mg Oral tab [Active]; Fish Oil Oral [Active]; - PMHx: 02:06 Hypertension; thoracic aneurysm; mg2 - PSHx: 02:06 Carpal Tunnel Repair; mg2 - Immunization history:: Flu vaccine status is unknown. - Social history:: Smoking status: unknown. - Family history:: not pertinent. - Hospitalizations: : No recent hospitalization is reported. Screenin:55 VAN Screening: Arm Drift: Patient shows no arm weakness. Patient is VAN negative. mg2 01:55 Patient has been NPO before screening. The patient is alert, able to follow commands. mg2 The patient does not exhibit slurred or garbled speech The patient is not exhibiting difficulty speaking. The patient does not exhibit difficulty understanding words. The patient is able to swallow own secretions with no drooling or need for suction. Patient tolerated one teaspoon of water. No drooling, immediate coughing, gurgling, or clearing of the throat was noted. The patient tolerated 90mL of water. No drooling, immediate coughing, gurgling, or clearing of the throat was noted. The patient passed the bedside swallow screening. Oral medications may be given as ordered. Contact Physician for further diet orders. Provider notified of bedside swallow screening results: Neo Ramesh MD. 02:20 Abuse screen: Denies threats or abuse. Denies injuries from another. Nutritional rv screening: No deficits noted. Tuberculosis screening: No symptoms or risk factors identified. Fall Risk None identified. Assessment: 02:20 General: Appears in no apparent distress. comfortable, Behavior is calm, cooperative. mg2 Pain: Complains of pain in head Pain currently is 5 out of 10 on a pain scale. Quality of pain is described as aching, Pain began gradually, Is intermittent. Neuro: Level of Consciousness is awake, alert, obeys commands, Oriented to person, place, time, situation. Neuro: Reports blurred vision since 1230 today dizziness, headache frontal area. Cardiovascular: Capillary refill < 3 seconds Patient's skin is warm and dry. Respiratory: Airway is patent Respiratory effort is even, unlabored, Respiratory pattern is regular, symmetrical. GI: Abdomen is non-distended. : No signs and/or symptoms were reported regarding the genitourinary system. EENT: No signs and/or symptoms were reported regarding the EENT system. Derm: Skin is intact, is healthy with good turgor, Skin is pink, warm \T\ dry. normal. Musculoskeletal: Circulation, motion, and sensation intact. Capillary refill < 3 seconds. 02:35 Reassessment: called for Code Stroke. mg2 02:43 Reassessment: patient sent to CT scan via stretcher. mg2 02:56 Reassessment:. mg2 06:29 Reassessment: UNABLE TO GIVE REPORT AT THIS TIME. WILL HAVE TO CALL BACK AFTER 15 rv MINUTES. 07:00 Reassessment: RECD REPORT FROM PATRICIA ANGELES. 65YO WM P/W DIZZINESS AND RIOS, TRANSFER TO [facility] IN PROCESS. EMS TRANSPORT PENDING. Vital Signs: 02:02 BP 128 / 93; Pulse 79; Resp 18; Temp 96.6; Pulse Ox 100% on R/A; Weight 99.79 kg; mg2 Height 5 ft. 8 in. (172.72 cm); 02:56 BP 110 / 79; Pulse 72; Resp 18; Pulse Ox 100% on R/A; mg2 04:00 BP 124 / 91; Pulse 78; Resp 17; Pulse Ox 96% on R/A; rv 05:00 BP 120 / 89; Pulse 52; Resp 15; Pulse Ox 97% on R/A; rv 05:40 BP 119 / 98 Supine; Pulse 87; oe 05:42 BP 136 / 96 Sitting; Pulse 88; oe 05:45 BP 122 / 98 Standing; Pulse 84; oe 06:27 BP 111 / 74; Pulse 72; Resp 17; Pulse Ox 98% on R/A; rv 02:02 Body Mass Index 33.45 (99.79 kg, 172.72 cm) mg2 Chris Coma Score: 04:00 Eye Response: spontaneous(4). Verbal Response: oriented(5). Motor Response: obeys rv commands(6). Total: 15. 05:00 Eye Response: spontaneous(4). Verbal Response: oriented(5). Motor Response: obeys rv commands(6). Total: 15. 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 bp1 01:57 Neo Ramesh MD is Attending Physician. rn 02:02 Ephraim Garza, BRIDGETTE is Primary Nurse. mg2 02:04 Triage completed. mg2 02:04 Arm band placed on. mg2 02:15 Initial lab(s) drawn, by wi, sent to lab. Inserted saline lock: 20 gauge in right rv forearm, using aseptic technique. Blood collected. 02:21 Patient has correct armband on for positive identification. Placed in gown. Bed in low rv position. Call light in reach. Side rails up X2. monitor worker on. Pulse ox on. NIBP on. 02:23 No provider procedures requiring assistance completed. mg2 02:54 CT Head Brain wo Cont In Process Unspecified. EDMS 04:19 CT Head Angio In Process Unspecified. EDMS 04:19 CT Neck Angio In Process Unspecified. EDMS 05:[address] [facility] with Demi Andino. tt3 05:32 Demi called back with the physician to speak with Dr. Ramesh. tt3 06:12 Demi called back with administrative approval. The accepting physician is Dr. delfina Garcia and accepted at [id number]. The pt is going to [facility] room 1414. Nurse to call report to . Face Sheet and MOT faxed to per Demi's request. 07:17 Primary Nurse role handed off by Ephraim Garza, BRIDGETTE bp 07:17 Sj Brown, BRIDGETTE is Primary Nurse. bp 08:10 Patient transferred, IV remains in place. ss Administered Medications: 03:30 Drug: Aspirin Chewable Tablet 324 mg Route: PO; rv 06:26 Follow up: Response: No adverse reaction rv 03:30 Drug: foLIC Acid 1 mg Route: IVPB; Site: right forearm; rv 06:26 Follow up: IV Status: Completed infusion rv Outcome: 05:36 ER care complete, transfer ordered by MD. rn 08:10 Transferred by ground EMS to [facility], Transfer form completed. ss 08:10 Condition: improved 08:10 Instructed on the need for admit. 08:12 Patient left the ED. NIH Stroke Scale - NIH Stroke Score Date: 04/02/2020 Time: 01:55 Total Score = 0 1a. Level of Consciousness (LOC) - 0(Alert) 1b. Level of Consciousness (LOC) (Year \T\ Age) - 0(Both) 1c. LOC Commands (Open \T\ Closes Eyes/Travel Director) - 0(Both) 2. Best Gaze (Lateral Gaze Paresis) - 0(Normal) 3. Visual Field Loss - 0(No visual loss) 4. Facial Palsy - 0(Normal) 5a. Left Arm: Motor (10-second hold) - 0(No drift) 5b. Right Arm: Motor (10-second hold) - 0(No drift) 6a. Left Leg: Motor (5-second hold - always test supine) - 0(No drift) 6b. Right Leg: Motor (5-second hold - always test supine) - 0(No drift) 7. Limb Ataxia (finger/nose \T\ heel/smith - test with eyes open) - 0(Absent) 8. Sensory Loss (pinprick arms/legs/face) - 0(Normal) 9. Best Language: Aphasia (description/naming/reading) - 0(No aphasia) 10. Dysarthria (speech clarity - read or repeat words) - 0(Normal) 11. Extinction and Inattention (visual/tactile/auditory/spatial/personal) - 0(No abnormality) Initials: mg2 NIH Stroke Scale - NIH Stroke Score Date: 04/02/2020 Time: 02:37 Total Score = 0 1a. Level of Consciousness (LOC) - 0(Alert) 1b. Level of Consciousness (LOC) (Year \T\ Age) - 0(Both) 1c. LOC Commands (Open \T\ Closes Eyes/Travel Director) - 0(Both) 2. Best Gaze (Lateral Gaze Paresis) - 0(Normal) 3. Visual Field Loss - 0(No visual loss) 4. Facial Palsy - 0(Normal) 5a. Left Arm: Motor (10-second hold) - 0(No drift) 5b. Right Arm: Motor (10-second hold) - 0(No drift) 6a. Left Leg: Motor (5-second hold - always test supine) - 0(No drift) 6b. Right Leg: Motor (5-second hold - always test supine) - 0(No drift) 7. Limb Ataxia (finger/nose \T\ heel/smith - test with eyes open) - 0(Absent) 8. Sensory Loss (pinprick arms/legs/face) - 0(Normal) 9. Best Language: Aphasia (description/naming/reading) - 0(No aphasia) 10. Dysarthria (speech clarity - read or repeat words) - 0(Normal) 11. Extinction and Inattention (visual/tactile/auditory/spatial/personal) - 0(No abnormality) Initials: rn Signatures: Dispatcher [employer] EDNeo Cox MD MD rn Smirch, Shelby RN RN ss Florian Moralez Brian RN RN bp Ephraim Garza, BRIDGETTE RN mg2 Femi Marie RN RN rv Mervat Terry Tyler tt3 Corrections: (The following items were deleted from the chart) 02:45 02:44 VAN Screening: Arm Drift: Patient shows no arm weakness. Patient is VAN mg2 negative. mg2 06:13 06:[address] [facility] with Demi Andino. tt3 tt3 06:22 06:12 Demi called back with administrative approval. The accepting tt3 physician is Dr. Garcia and accepted at [id number]. The pt is going to [facility] room 1414. Nurse to call report to . Face Sheet and MOT faxed to [phone] per Demi's request. tt3
--- NOTE | 2020-04-02 05:37 | EDPHYS ---
Physician Documentation [facility] Name: Bert Quigley Age: 65 yrs Sex: Male : 1955 Arrival Date: 04/02/2020 Time: 01:53 Bed 4 Private MD: ED Physician Neo Ramesh HPI: 04/02 02:27 This 65 yrs old Male presents to ER via Wheelchair with complaints of rn Dizziness, Nausea, Headache. 02:27 The patient presents with feeling off balance, sense of spinning. Onset: The rn symptoms/episode began/occurred at an unknown time. Modifying factors: The symptoms are alleviated by holding head still, lying down, the symptoms are aggravated by movement of head. Associated signs and symptoms: Pertinent positives: blurred vision, headache, Pertinent negatives: head injury, seizure, shortness of breath, syncope. Severity of symptoms: At their worst the symptoms were moderate in the emergency department the symptoms have resolved. The patient has not experienced similar symptoms in the past. Reports having trouble falling asleep, tossing and turning, felt dizziness, but around 00:30 felt more severe symptoms, dizziness, "feeling drunk", blurred vision, called his daughter around 0050 to notify. She did not appreciate slurred speech. Now states symptoms have resolved. Denies any dizziness/blurred vision/focal weakness/numbness/headache. Feels back to baseline currently. . Historical: - Allergies: 02:06 Cefoxitin Sodium; mg2 - Home Meds: 02:23 lisinopril 10 mg Oral tab 1 tab [Active]; metoprolol succinate 50 mg Oral Tb24 1 tab mg2 once daily [Active]; Metoprolol Tartrate Oral [Active]; Motrin Oral [Active]; nortriptyline 25 mg Oral tab [Active]; oxcarbazepine 300 mg Oral tab [Active]; Fish Oil Oral [Active]; - PMHx: 02:06 Hypertension; thoracic aneurysm; mg2 - PSHx: 02:06 Carpal Tunnel Repair; mg2 - Immunization history:: Flu vaccine status is unknown. - Social history:: Smoking status: unknown. - Family history:: not pertinent. - Hospitalizations: : No recent hospitalization is reported. ROS: 02:27 Constitutional: Negative for fever, chills, and weight loss, Eyes: Negative for injury, rn pain, redness, and discharge, ENT: Negative for injury, pain, and discharge, Neck: Negative for injury, pain, and swelling, Cardiovascular: Negative for chest pain, palpitations, and edema, Respiratory: Negative for shortness of breath, cough, wheezing, and pleuritic chest pain, Abdomen/GI: Negative for abdominal pain, diarrhea, and constipation, MS/Extremity: Negative for injury and deformity, Skin: Negative for injury, rash, and discoloration, Neuro: Negative for weakness, numbness, tingling, and seizure. Exam: 02:27 Constitutional: This is a well developed, well nourished patient who is awake, alert, rn and in no acute distress. Head/Face: Normocephalic, atraumatic. Eyes: Pupils equal round and reactive to light, extra-ocular motions intact. Lids and lashes normal. Conjunctiva and sclera are non-icteric and not injected. Cornea within normal limits. Periorbital areas with no swelling, redness, or edema. No nystagmus. Cardiovascular: Regular rate and rhythm. No pulse deficits. Respiratory: Speaking full and clear sentences. No increased work of breathing, no retractions or nasal flaring. Abdomen/GI: Soft, non-tender Skin: Warm, dry MS/ Extremity: Pulses equal, no cyanosis. Neurovascular intact. Full, normal range of motion. Equal circumference. Neuro: Awake and alert, GCS 15, oriented to person, place, time, and situation. Cranial nerves II-XII grossly intact. Motor strength 5/5 in all extremities. Sensory grossly intact. Cerebellar exam normal. Normal [id number], normal STUART. No visual field abnormality. Vision normal. 02:32 ECG was reviewed by the Attending Physician. rn Vital Signs: 02:02 BP 128 / 93; Pulse 79; Resp 18; Temp 96.6; Pulse Ox 100% on R/A; Weight 99.79 kg; mg2 Height 5 ft. 8 in. (172.72 cm); 02:56 BP 110 / 79; Pulse 72; Resp 18; Pulse Ox 100% on R/A; mg2 04:00 BP 124 / 91; Pulse 78; Resp 17; Pulse Ox 96% on R/A; rv 05:00 BP 120 / 89; Pulse 52; Resp 15; Pulse Ox 97% on R/A; rv 05:40 BP 119 / 98 Supine; Pulse 87; oe 05:42 BP 136 / 96 Sitting; Pulse 88; oe 05:45 BP 122 / 98 Standing; Pulse 84; oe 06:27 BP 111 / 74; Pulse 72; Resp 17; Pulse Ox 98% on R/A; rv 02:02 Body Mass Index 33.45 (99.79 kg, 172.72 cm) mg2 NIH Stroke Scale Scores: 01:55 NIHSS Score: 0 mg2 02:37 NIHSS Score: 0 rn Chris Coma Score: 04:00 Eye Response: spontaneous(4). Verbal Response: oriented(5). Motor Response: obeys rv commands(6). Total: 15. 05:00 Eye Response: spontaneous(4). Verbal Response: oriented(5). Motor Response: obeys rv commands(6). Total: 15. MDM: 01:57 Patient medically screened. rn 02:38 ED course: NO indication for TPA given NIHSS 0, currently asymptomatic. . rn 03:06 ED course: No acute findings on CT head per Dr. Kay.. rn 05:10 ED course: Still waiting on results of ct head angio and neck angio. Pt still rn asymptomatic, sleeping comfortably. . 05:35 Differential diagnosis: generalized weakness, hypovolemia, idiopathic dizziness, TIA, rn vertigo. Data reviewed: vital signs, nurses notes, lab test result(s), EKG, radiologic studies, CT scan, and as a result, I will admit patient. Counseling: I had a detailed discussion with the patient and/or guardian regarding: the historical points, exam findings, and any diagnostic results supporting the discharge/admit diagnosis, lab results, radiology results, the need to transfer to another facility, NO MRI available to w/u TIA. Response to treatment: the patient's symptoms have resolved after treatment, the patient's condition has returned to base line, the patient is now symptom free, and as a result, I will admit patient. ED course: Accepted for transfer to [facility] for TIA w/u. . 05:59 ED course: Orthostatics obtained, normal. . rn 04/02 02:13 Order name: CBC with Diff; Complete Time: 02:45 rn 04/02 02:13 Order name: Basic Metabolic Panel; Complete Time: 02:45 rn 04/02 02:13 Order name: Protime (+inr); Complete Time: 02:45 rn 04/02 02:13 Order name: Ptt, Activated; Complete Time: 02:45 rn 04/02 02:13 Order name: CT Head Brain wo Cont rn 04/02 02:13 Order name: Magnesium; Complete Time: 02:45 rn 04/02 02:13 Order name: IV Start; Complete Time: 02:20 rn 04/02 02:13 Order name: CT Head Angio rn 04/02 02:13 Order name: CT Neck Angio rn 04/02 02:13 Order name: EKG; Complete Time: 02:14 rn 04/02 02:13 Order name: EKG - Nurse/Tech; Complete Time: 02:20 rn EC:32 Rate is 73 beats/min. Rhythm is regular. QRS [place] is Normal. OK interval is normal. QRS rn interval is normal. QT interval is normal. No Q waves. T waves are Normal. No ST changes noted. Clinical impression: Normal ECG. Interpreted by me. Reviewed by me. Administered Medications: 03:30 Drug: Aspirin Chewable Tablet 324 mg Route: PO; rv 06:26 Follow up: Response: No adverse reaction rv 03:30 Drug: foLIC Acid 1 mg Route: IVPB; Site: right forearm; rv 06:26 Follow up: IV Status: Completed infusion rv Disposition: 04/02/20 05:36 Transfer ordered to [facility]. Diagnosis are Dizziness and giddiness, Visual disturbances, Transient cerebral ischemic attack, unspecified. - Reason for transfer: Higher level of care. - Accepting physician is Dr. Kirk. - Condition is Stable. - Problem is new. - Symptoms are resolved. NIH Stroke Scale - NIH Stroke Score Date: 04/02/2020 Time: 01:55 Total Score = 0 1a. Level of Consciousness (LOC) - 0(Alert) 1b. Level of Consciousness (LOC) (Year \\T\\ Age) - 0(Both) 1c. LOC Commands (Open \\T\\ Closes Eyes/Home Theater Expert) - 0(Both) 2. Best Gaze (Lateral Gaze Paresis) - 0(Normal) 3. Visual Field Loss - 0(No visual loss) 4. Facial Palsy - 0(Normal) 5a. Left Arm: Motor (10-second hold) - 0(No drift) 5b. Right Arm: Motor (10-second hold) - 0(No drift) 6a. Left Leg: Motor (5-second hold - always test supine) - 0(No drift) 6b. Right Leg: Motor (5-second hold - always test supine) - 0(No drift) 7. Limb Ataxia (finger/nose \\T\\ heel/smith - test with eyes open) - 0(Absent) 8. Sensory Loss (pinprick arms/legs/face) - 0(Normal) 9. Best Language: Aphasia (description/naming/reading) - 0(No aphasia) 10. Dysarthria (speech clarity - read or repeat words) - 0(Normal) 11. Extinction and Inattention (visual/tactile/auditory/spatial/personal) - 0(No abnormality) Initials: mg2 NIH Stroke Scale - NIH Stroke Score Date: 04/02/2020 Time: 02:37 Total Score = 0 1a. Level of Consciousness (LOC) - 0(Alert) 1b. Level of Consciousness (LOC) (Year \\T\\ Age) - 0(Both) 1c. LOC Commands (Open \\T\\ Closes Eyes/Home Theater Expert) - 0(Both) 2. Best Gaze (Lateral Gaze Paresis) - 0(Normal) 3. Visual Field Loss - 0(No visual loss) 4. Facial Palsy - 0(Normal) 5a. Left Arm: Motor (10-second hold) - 0(No drift) 5b. Right Arm: Motor (10-second hold) - 0(No drift) 6a. Left Leg: Motor (5-second hold - always test supine) - 0(No drift) 6b. Right Leg: Motor (5-second hold - always test supine) - 0(No drift) 7. Limb Ataxia (finger/nose \\T\\ heel/smith - test with eyes open) - 0(Absent) 8. Sensory Loss (pinprick arms/legs/face) - 0(Normal) 9. Best Language: Aphasia (description/naming/reading) - 0(No aphasia) 10. Dysarthria (speech clarity - read or repeat words) - 0(Normal) 11. Extinction and Inattention (visual/tactile/auditory/spatial/personal) - 0(No abnormality) Initials: rn Signatures: Dispatcher [employer] EDMD Neo Ramesh MD MD rn Smirch, Shelby, RN RN ss Gardose, Michele, RN RN mg2 Vicente, Ronaldo RN RN rv Corrections: (The following items were deleted from the chart) 05:49 05:36 04/02/2020 05:[address] [facility]. Diagnosis is Dizziness and giddiness; Visual disturbances; Transient cerebral ischemic attack, unspecified. Reason for transfer: Higher level of care. Accepting physician is . Condition is Stable. Problem is new. Symptoms are resolved. rn 08:12 05:49 04/02/2020 05:36 Transfer ordered to [facility]. Diagnosis is Dizziness and giddiness; Visual disturbances; Transient cerebral ischemic attack, unspecified. Reason for transfer: Higher level of care. Accepting physician is Dr. Kirk. Condition is Stable. Problem is new. Symptoms are resolved. rn
[2020-04-02 08:26] VITALS: TEMP 96.6
[2020-04-02 08:36] VITALS: BP 111/74; O2SAT 98
--- NOTE | 2020-04-02 19:18 | RAD REPORT ---
EXAM DESCRIPTION: CTHead angio04/02/2020 6:42 am CLINICAL HISTORY: 65 years, Male, blurred vision;Dizziness COMPARISON: 04/02/2020 TECHNIQUE: Axial CTA images of the head and neck obtained following the uncomplicated intravenous ad ministration of iodinated contrast.. 3-D/MIP reformatted images available. FINDINGS: CTA head: In the anterior circulation, the intracranial internal carotid arteries have normal course and calibe r. The internal carotid arteries bifurcate into widely patent A1 and M1 segments of the anterior and middle cerebral arteries respectively. No evidence of flow-limiting stenosis, aneurysm, occlusion, or dissection in the anterior circulation. The anterior communicating artery is patent. In the posterior circulation, the nondominant right intracranial vertebral artery terminates in the r ight PICA. The left cranial vertebral artery is widely patent and supplies the basilar artery. The ba silar artery terminates by supplying the right PIPELINE SUPERINTENDENT. Left PIPELINE SUPERINTENDENT is predominantly origin.. No evide nce of stenosis, aneurysm, occlusion, or dissection in the posterior circulation. No definite acute intracranial abnormality identified. No acute abnormality of the osseous calvarium. Paranasal sinuses and mastoid air cells are well aerated. CTA NECK: The aortic arch has normal anatomic configuration. The origin of the great vessels are widely patent. The right common carotid artery is widely patent and bifurcates into widely patent internal and exter nal carotid arteries. 0% stenosis by NASCET criteria. No evidence of occlusion or dissection. The left common carotid artery is widely patent and bifurcates into widely patent internal and auto inspector al carotid arteries. Minimal atherosclerotic plaque at the carotid bulb. 0% stenosis by NASCET criter ia. No evidence of occlusion or dissection. The cervical vertebral arteries are widely patent throughout their course. Nondominant right vertebra l artery No evidence of occlusion, stenosis, or dissection. No definite acute abnormalities in the neck soft tissues. No apical pneumothorax. No acute osseous ab normalities. IMPRESSION: 1. No evidence of occlusion, stenosis, or aneurysm in the vasculature. 2. No evidence of stenosis/occlusion of the cervical carotid or vertebral arteries. This exam was performed according to our departmental dose-optimization program, which includes autom ated exposure control, adjustment of the mA and/or kV according to patient size and/or use of iterati ve reconstruction technique. Electronically signed by: Sam Anderson 04/02/2020 5:10 AM CDT Due to temporary technical issues with the PACS/Fluency reporting system, reports are being signed by the in house radiologists without review as a courtesy to insure prompt reporting. The interpreting radiologist is fully responsible for the content of the report.
--- NOTE | 2020-04-02 19:23 | RAD REPORT ---
EXAM DESCRIPTION: Mckay Angio04/02/2020 6:41 am CLINICAL HISTORY: 65 years, Male, blurred vision;Dizziness COMPARISON: 04/02/2020 TECHNIQUE: Axial CTA images of the head and neck obtained following the uncomplicated intravenous ad ministration of iodinated contrast.. 3-D/MIP reformatted images available. FINDINGS: CTA head: In the anterior circulation, the intracranial internal carotid arteries have normal course and calibe r. The internal carotid arteries bifurcate into widely patent A1 and M1 segments of the anterior and middle cerebral arteries respectively. No evidence of flow-limiting stenosis, aneurysm, occlusion, or dissection in the anterior circulation. The anterior communicating artery is patent. In the posterior circulation, the nondominant right intracranial vertebral artery terminates in the r ight PICA. The left cranial vertebral artery is widely patent and supplies the basilar artery. The ba silar artery terminates by supplying the right HUMAN RESOURCES ADVISOR. Left HUMAN RESOURCES ADVISOR is predominantly origin.. No evide nce of stenosis, aneurysm, occlusion, or dissection in the posterior circulation. No definite acute intracranial abnormality identified. No acute abnormality of the osseous calvarium. Paranasal sinuses and mastoid air cells are well aerated. CTA NECK: The aortic arch has normal anatomic configuration. The origin of the great vessels are widely patent. The right common carotid artery is widely patent and bifurcates into widely patent internal and exter nal carotid arteries. 0% stenosis by NASCET criteria. No evidence of occlusion or dissection. The left common carotid artery is widely patent and bifurcates into widely patent internal and shared services manager al carotid arteries. Minimal atherosclerotic plaque at the carotid bulb. 0% stenosis by NASCET criter ia. No evidence of occlusion or dissection. The cervical vertebral arteries are widely patent throughout their course. Nondominant right vertebra l artery No evidence of occlusion, stenosis, or dissection. No definite acute abnormalities in the neck soft tissues. No apical pneumothorax. No acute osseous ab normalities. IMPRESSION: 1. No evidence of occlusion, stenosis, or aneurysm in the vasculature. 2. No evidence of stenosis/occlusion of the cervical carotid or vertebral arteries. This exam was performed according to our departmental dose-optimization program, which includes autom ated exposure control, adjustment of the mA and/or kV according to patient size and/or use of iterati ve reconstruction technique. Electronically signed by: Sam Anderson 04/02/2020 5:10 AM CDT Due to temporary technical issues with the PACS/Fluency reporting system, reports are being signed by the in house radiologists without review as a courtesy to insure prompt reporting. The interpreting radiologist is fully responsible for the content of the report.
--- NOTE | 2020-04-02 19:26 | RAD REPORT ---
EXAM DESCRIPTION: CT - Head Brain Wo Cont - 04/02/2020 6:43 am CLINICAL HISTORY: 65 years, Male, blurred vision;Dizziness COMPARISON: 04/02/2020 TECHNIQUE: Axial CTA images of the head and neck obtained following the uncomplicated intravenous ad ministration of iodinated contrast.. 3-D/MIP reformatted images available. FINDINGS: CTA head: In the anterior circulation, the intracranial internal carotid arteries have normal course and calibe r. The internal carotid arteries bifurcate into widely patent A1 and M1 segments of the anterior and middle cerebral arteries respectively. No evidence of flow-limiting stenosis, aneurysm, occlusion, or dissection in the anterior circulation. The anterior communicating artery is patent. In the posterior circulation, the nondominant right intracranial vertebral artery terminates in the r ight PICA. The left cranial vertebral artery is widely patent and supplies the basilar artery. The ba silar artery terminates by supplying the right AVIATION SAFETY EQUIPMENT TECHNICIAN. Left AVIATION SAFETY EQUIPMENT TECHNICIAN is predominantly origin.. No evide nce of stenosis, aneurysm, occlusion, or dissection in the posterior circulation. No definite acute intracranial abnormality identified. No acute abnormality of the osseous calvarium. Paranasal sinuses and mastoid air cells are well aerated. CTA NECK: The aortic arch has normal anatomic configuration. The origin of the great vessels are widely patent. The right common carotid artery is widely patent and bifurcates into widely patent internal and exter nal carotid arteries. 0% stenosis by NASCET criteria. No evidence of occlusion or dissection. The left common carotid artery is widely patent and bifurcates into widely patent internal and farm implement mechanic al carotid arteries. Minimal atherosclerotic plaque at the carotid bulb. 0% stenosis by NASCET criter ia. No evidence of occlusion or dissection. The cervical vertebral arteries are widely patent throughout their course. Nondominant right vertebra l artery No evidence of occlusion, stenosis, or dissection. No definite acute abnormalities in the neck soft tissues. No apical pneumothorax. No acute osseous ab normalities. IMPRESSION: 1. No evidence of occlusion, stenosis, or aneurysm in the vasculature. 2. No evidence of stenosis/occlusion of the cervical carotid or vertebral arteries. This exam was performed according to our departmental dose-optimization program, which includes autom ated exposure control, adjustment of the mA and/or kV according to patient size and/or use of iterati ve reconstruction technique. Electronically signed by: Sam Anderson 04/02/2020 5:10 AM CDT Due to temporary technical issues with the PACS/Fluency reporting system, reports are being signed by the in house radiologists without review as a courtesy to insure prompt reporting. The interpreting radiologist is fully responsible for the content of the report.
--- NOTE | 2020-04-03 10:13 | EKG ---
Test Date: 2020-04-02 Test Time: 02:18:00 Technical Stenographer: MEASUREMENT RESULTS: Intervals: Rate: 73 NM: 176 QRSD: 100 QT: 402 QTc: 442 Tappen: P: 60 NM: 176 QRS: -22 T: 61 INTERPRETIVE STATEMENTS: Normal sinus rhythm Normal ECG Compared to ECG 07/18/2019 13:03:00 No significant changes Electronically Signed On 04-03-20 10:10:24 DISABILITY SERVICES COORDINATOR by Yinka Oconnell
== END 2020-04-02 08:12 | disposition short-term general hospital (02) ==
LOC: ER 01:49
DX: G45.9 Transient cerebral ischemic attack, unspecified (principal); H53.9 Unspecified visual disturbance; I10 Essential (primary) hypertension; Z88.8 Allergy status to other drugs, medicaments and biological substances
CPT/HCPCS: 96365; 93005; 85025; 80048; 36415; 83735; 85610; 82565; 82947; 85730; 70450; 70496; 70498; 99285; 96366; Q9967

== ENCOUNTER 2024-01-09 07:18 | Emergency (ER) | payer OTHER ==
[2024-01-09 07:45] LABS: Absolute Eosinophils 0.1 K/uL (0-0.5); Absolute Lymphocytes (CBC) 1.9 K/uL (0.7-4.9); Absolute Monocytes 0.6 K/uL (0.1-1.3); Absolute Neutrophil 1.9 K/uL (1.8-8.0); Basophils % 0.7 % (0-1.3); Eosinophils % 2.7 % (0-4.4); Hematocrit 39.1 % (39.6-49.0); Hemoglobin 13.7 g/dL (13.6-17.9); Lymphocytes % 41.4 % (15.3-44.8); MCH 30.9 pg (27.0-35.0); MCHC 35.1 g/dL (32.0-36.0); MCV 87.9 fL (80-100); MPV 6.7 fL (7.6-11.3); Monocytes % 13.8 % (3.3-12.3); Neutrophils % 41.4 % (41.7-73.7); Nucleated Red Blood Cells % 0.1 % (0-0); Platelets 220 thou/uL (152-406); RBC Red Blood Cell Count 4.45 M/uL (4.33-5.43)
[2024-01-09 08:06] LABS: Troponin High Sensitivity 7.9 pg/mL (<58.9)
[2024-01-09 08:07] LABS: PT Prothrombin Time 10.4 SECONDS (9.4-12.5); Protime INR 0.93
--- NOTE | 2024-01-09 08:35 | RAD REPORT ---
EXAM DESCRIPTION: CT - Angio Aorta For Dissection - 01/09/2024 8:11 am CLINICAL HISTORY: chest pain, known thoracic aneurysm COMPARISON: Angio Aorta For Dissection dated 04/07/2016; Abdomen Pelvis Wo Contrast dated ; Chest Angio dated 04/24/2023; Chest Angio dated 11/11/2023 TECHNIQUE: Thin axial CT images of the chest, abdomen, and pelvis were obtained during administratio n of 100mL Isovue 370 IV contrast. Sagittal and coronal reconstructions as well as maximal intensity projection reconstruction were generated and reviewed per an aortic angiography protocol. All CT scans are performed using dose optimization technique as appropriate and may include automated exposure control or mA/KV adjustment according to patient size. FINDINGS: Fusiform aneurysmal dilation of the ascending thoracic aorta measuring 5 cm in greatest ca liber. This is stable. Remainder of the aorta shows mild tortuosity but is otherwise normal in diamet er with no dissection or other acute aortic findings. Mild atherosclerotic calcific plaque formation of the abdominal aorta and iliac vessels. Reconstruction images show no significant findings. Pulmonary arteries are normal as well. No mass or infiltrate in the lung parenchyma. No pleural thickening, pleural effusion or pneumothorax . No abnormal mediastinal or hilar mass or lymphadenopathy seen. No chest wall mass or abnormal axillar y lymphadenopathy. Celiac, SMA and renal arteries show no suspicious findings. Small foci of calcification within the li jared and spleen are benign in appearance. A small splenule is noted. Kidneys are mildly anteriorly rot ated. Right interpolar 4.4 cm fluid density cyst is stable. Solid abdominal viscera and bowel show no significant findings. No mass or abnormal lymphadenopathy. IMPRESSION: No acute abnormalities on CT angiogram of the aorta. Stable fusiform aneurysmal dilation of the ascending thoracic aorta measuring 5 cm in caliber. Other stable incidental findings as above.
--- NOTE | 2024-01-09 08:35 | RAD REPORT ---
EXAM DESCRIPTION: RADChest Single View01/09/2024 8:19 am CLINICAL HISTORY: CHEST PAIN COMPARISON: Chest Single View dated 01/02/2024; Chest Single View dated 01/18/2020; Chest Pa And Lat (2 Views) dated 11/18/2019; Chest Single View dated 07/18/2019 TECHNIQUE: Portable AP view of the chest. FINDINGS: The lungs are clear. No pneumothorax or effusion. The cardiomediastinal contours are unch anged. Lower cervical fusion hardware again present. IMPRESSION: No acute cardiopulmonary process.
[2024-01-09 09:14] LABS: Blood Morphology Comment NOT SEEN (NOT SEEN); Platelet Estimate ADEQ; White Blood Cell Scan OK (OK)
[2024-01-09] MEDS ORDERED: ASPIRIN EC 325 MG TABLET PO ONE (09:54)
--- NOTE | 2024-01-09 10:47 | ER ---
Nurse's Notes [facility] Name: Bert Quigley Age: 68 yrs Sex: Male : 1955 Arrival Date: 01/09/2024 Time: 07:18 Bed 13 Private MD: Diagnosis: Chest pain, unspecified;Thoracic aortic aneurysm, without rupture Presentation: 01/08 07:29 Chief complaint: Patient states: he started having chest pain approx 20mins prior to ap3 arrival. patient reports the pain as "cramping" that comes and goes. patient states he is due to have bypass surgery next week, that he was scheduled to have it last week however he was dx with COVID and had to reschedule. Coronavirus screen: At this time, the client does not indicate any symptoms associated with coronavirus-19. Ebola Screen: No symptoms or risks identified at this time. Initial Sepsis Screen: Does the patient meet any 2 criteria? No. Patient's initial sepsis screen is negative. Does the patient have a suspected source of infection? No. Patient's initial sepsis screen is negative. Risk Assessment: Do you want to hurt yourself or someone else? Patient reports no desire to harm self or others. Onset of symptoms was January 09, 2024. 07:29 Method Of Arrival: Ambulatory ap3 07:29 Acuity: TIN 2 ap3 Triage Assessment: 07:33 General: Appears uncomfortable, Behavior is calm, cooperative, appropriate for age. ap3 Pain: Complains of pain in anterior aspect of left upper chest Quality of pain is described as crampy, Pain began 30 min ago. Is intermittent. Neuro: Level of Consciousness is awake, alert, obeys commands, Oriented to person, place, time, situation, Appropriate for age Gait is steady, Speech is normal. Cardiovascular: Reports chest pain, shortness of breath. Respiratory: Airway is patent Respiratory effort is even, unlabored, Respiratory pattern is regular, symmetrical. Historical: - Allergies: 07:32 Cefoxitin Sodium; ap3 - PMHx: 07:32 Hypertension; thoracic aneurysm; ap3 - Immunization history:: Client reports having NOT received the Covid vaccine. - Infectious Disease History:: Denies. - Social history:: Smoking status: Patient denies any tobacco usage or history of. - Hospitalizations: : No recent hospitalization is reported. Screenin:33 Abuse screen: Denies threats or abuse. Nutritional screening: No deficits noted. ap3 Tuberculosis screening: No symptoms or risk factors identified. 07:39 [facility] ED Fall Risk Assessment (Adult) History of falling in the last 3 months, kc6 including since admission No falls in past 3 months (0 pts) Confusion or Disorientation No (0 pts) Intoxicated or Sedated No (0 pts) Impaired Gait No (0 pts) Mobility Assist Device Used No (0 pt) Altered Elimination No (0 pt) Score/Fall Risk Level 0 - 2 = Low Risk. Assessment: 07:39 General: Appears in no apparent distress. comfortable, well groomed, well developed, kc6 Behavior is cooperative, appropriate for age, anxious. Pain: Complains of pain in anterior aspect of left upper chest and left breast Pain does not radiate. Is intermittent, Alleviated by rest. Neuro: Level of Consciousness is awake, alert, obeys commands, Oriented to person, place, time, situation, Appropriate for age. Cardiovascular: Reports chest pain, Heart tones S1 S2 present Capillary refill < 3 seconds Rhythm is sinus bradycardia. Respiratory: Reports cough that is non-productive, Airway is patent Trachea midline Respiratory effort is even, unlabored, Respiratory pattern is regular, symmetrical, Breath sounds with wheezes bilaterally. Onset: The symptoms/episode began/occurred this morning, Denies shortness of breath. GI: No signs and/or symptoms were reported involving the gastrointestinal system. : No signs and/or symptoms were reported regarding the genitourinary system. EENT: No signs and/or symptoms were reported regarding the EENT system. Derm: No signs and/or symptoms reported regarding the dermatologic system. Skin is intact, is healthy with good turgor, Skin is pink, warm \\T\\ dry. Musculoskeletal: No signs and/or symptoms reported regarding the musculoskeletal system. Circulation, motion, and sensation intact. Capillary refill < 3 seconds, Range of motion: intact in all extremities. 08:39 Reassessment: Patient appears in no apparent distress at this time. No changes from kc6 previously documented assessment. Patient and/or family updated on plan of care and expected duration. Pain level reassessed. Patient is alert, oriented x 3, equal unlabored respirations, skin warm/dry/pink. 10:25 Reassessment: Patient appears in no apparent distress at this time. No changes from kc6 previously documented assessment. Patient and/or family updated on plan of care and expected duration. Pain level reassessed. Patient is alert, oriented x 3, equal unlabored respirations, skin warm/dry/pink. 11:16 Reassessment: Patient appears in no apparent distress at this time. No changes from kc6 previously documented assessment. Patient and/or family updated on plan of care and expected duration. Pain level reassessed. Patient is alert, oriented x 3, equal unlabored respirations, skin warm/dry/pink. Vital Signs: 07:29 BP 158 / 94; Pulse 53; Resp 19; Pulse Ox 98% on R/A; Weight 99.79 kg; ap3 07:41 BP 152 / 90; Pulse 54; Resp 15 S; Pulse Ox 98% on R/A; kc6 08:39 Pulse 48; Resp 16 S; Pulse Ox 97% on R/A; kc6 10:25 BP 142 / 90; Pulse 60; Resp 16 S; Pulse Ox 100% on R/A; kc6 11:16 BP 137 / 97; Pulse 41; Resp 18 S; Pulse Ox 99% on R/A; kc6 ED Course: 07:20 Patient arrived in ED. im 07:20 Neo Ramesh MD is Attending Physician. rn 07:23 Yue Almanza RN is Primary Nurse. kc6 07:26 EKG done, by ED staff, reviewed by Neo Ramesh MD. ap3 07:32 Triage completed. ap3 07:34 Arm band placed on right wrist. ap3 07:34 Client placed on continuous cardiac and pulse oximetry monitoring. NIBP monitoring ap3 applied. art appraiser on. Pulse ox on. NIBP on. 07:34 Patient maintains SpO2 saturation greater than 95% on room air. ap3 07:35 Patient has correct armband on for positive identification. Placed in gown. Bed in low kc6 position. Call light in reach. Side rails up X2. Adult w/ patient. Door closed. Noise minimized. Lights dimmed. Warm blanket given. Pillow given. 07:35 Missed attempt(s): 20 gauge in right antecubital area. kc6 07:35 Initial lab(s) drawn, by me, sent to lab. kc6 07:55 Inserted saline lock: 20 gauge in right forearm, using aseptic technique. Flushed with kc6 10 mL NS. 08:13 CT Aorta for Dissection In Process Unspecified. EDMS 08:21 XRAY Chest (1 view) In Process Unspecified. EDMS 10:44 initiated transfer to [facility]. bd 11:34 pt accepted in transfer to [facility] by dr Terrell Hatfield,admin approval given by willow Ruby. 11:37 pt to be transferred by ems. bd 11:53 No provider procedures requiring assistance completed. Patient transferred, IV remains kc6 in place. Administered Medications: 09:59 Drug: Aspirin PO 325 mg PO once Route: PO; kc6 10:25 Follow up: Response: No adverse reaction kc6 Medication: 11:53 VIS not applicable for this client. kc6 Outcome: 10:46 ER care complete, transfer ordered by . rn 11:53 Transferred by [facility] to [facility], Transfer form completed. kc6 11:53 Condition: good 11:53 Instructed on the need for transfer, 11:53 Patient left the ED. kc6 Signatures: Dispatcher [employer] EDMS Karine Buckley Roman, MD MD rn Prokisch, Amanda, RN RN [email or web address] Yue Almanza RN RN kc6 Dorothy Warren
--- NOTE | 2024-01-09 10:47 | EDPHYS ---
Physician Documentation [facility] Name: Bert Quigley Age: 68 yrs Sex: Male : 1955 Arrival Date: 01/09/2024 Time: 07:18 Bed 13 Private MD: ED Physician Neo Ramesh HPI: 01/08 07:46 This 68 yrs old Male presents to ER via Ambulatory with complaints of Chest Pain. rn 07:46 The patient or guardian reports chest pain that is located primarily in the substernal rn area, anterior chest wall, left. Onset: just prior to arrival. The pain does not radiate. Associated signs and symptoms: Pertinent positives: cough, Pertinent negatives: abdominal pain, diaphoresis, lower extremity swelling, palpitations, shortness of breath, syncope, vomiting. The chest pain is described as a heaviness, a pressure. Duration: The patient or guardian reports multiple episodes, that are intermittent. Modifying factors: The symptoms are alleviated by nothing. the symptoms are aggravated by nothing. Severity of pain: At its worst the pain was moderate in the emergency department the pain has improved. The patient has not experienced similar symptoms in the past. The patient has not recently seen a physician. Patient reports chest pain that began prior to arrival, was at rest, left sided and substernal chest pain, nonradiating, no shortness of breath/diaphoresis/palpitations. Denies previous chest pain. Has known aortic thoracic aneurysm that has been tracked and has shown growth so is in line for repair coming up in [place]. Their plan is to get heart cath completed prior to aortic repair. Denies previous cardiac problems or In the past. Has had COVID recently with productive cough. No trauma. No hemoptysis.. Historical: - Allergies: 07:32 Cefoxitin Sodium; ap3 - PMHx: 07:32 Hypertension; thoracic aneurysm; ap3 - Immunization history:: Client reports having NOT received the Covid vaccine. - Infectious Disease History:: Denies. - Social history:: Smoking status: Patient denies any tobacco usage or history of. - Hospitalizations: : No recent hospitalization is reported. ROS: 07:46 Constitutional: Negative for fever, chills, and weight loss, Cardiovascular: +chest rn pain Respiratory: Negative for shortness of breath, wheezing Abdomen/GI: Negative for abdominal pain, nausea, vomiting, diarrhea, and constipation, MS/Extremity: Negative for injury and deformity, Skin: Negative for injury, rash, and discoloration, Neuro: Negative for headache, weakness, numbness, tingling, and seizure, Exam: 07:46 Constitutional: This is a well developed, well nourished patient who is awake, alert, rn and in no acute distress. Head/Face: Normocephalic, atraumatic. Chest/axilla: Nontender with no deformity. Cardiovascular: Bradycardic, regular. No pulse deficits. Respiratory: No increased work of breathing, no retractions or nasal flaring. Abdomen/GI: Soft, non-tender Neuro: Awake and alert, GCS 15 08:08 ECG was reviewed by the Attending Physician. rn Vital Signs: 07:29 BP 158 / 94; Pulse 53; Resp 19; Pulse Ox 98% on R/A; Weight 99.79 kg; ap3 07:41 BP 152 / 90; Pulse 54; Resp 15 S; Pulse Ox 98% on R/A; kc6 08:39 Pulse 48; Resp 16 S; Pulse Ox 97% on R/A; kc6 10:25 BP 142 / 90; Pulse 60; Resp 16 S; Pulse Ox 100% on R/A; kc6 11:16 BP 137 / 97; Pulse 41; Resp 18 S; Pulse Ox 99% on R/A; kc6 MDM: 07:20 Patient medically screened. rn 07:46 ED course: Pt declines pain meds.. rn 08:38 ED course: Chest pain has resolved without intervention. rn 09:19 Differential diagnosis: acute myocardial infarction. rn 09:19 Differential diagnosis: acute pericarditis, anxiety, coronary artery disease chest wall rn pain, costochondritis, esophagitis, gastritis, pleurisy, pneumothorax, pulmonary embolus, stable angina, thoracic aortic disection. HEART Score: History: Slightly Suspicious (0), ECG: Normal (0), Age: > or = 65 years (2), Risk Factors: 1 or 2 risk factors (1), Troponin: < or = 1 x Normal Limit (0), Total Score = 3. 10:44 The patient was given aspirin in the Emergency Department. Data reviewed: vital signs, rn nurses notes. 10:45 Counseling: I had a detailed discussion with the patient and/or guardian regarding the rn historical points, exam findings, and any diagnostic results supporting the discharge/admit diagnosis, lab results, radiology results, the need for further work-up and treatment in the hospital. ED course: Patient is still chest pain-free. No acute findings on workup. Troponin negative, ECG negative for acute ischemia. CTA does not show any change in thoracic aneurysm. After speaking with patient and daughter they prefer transfer to [place] to get it all taken care of at the same location and they spoke with the infantry operations specialist Dr. Quiros who agrees to transfer to [place]. Patient accepted for transfer to [facility].. 01/08 07:33 Order name: Basic Metabolic Panel; Complete Time: 08:10 rn 01/08 07:33 Order name: CBC with Diff; Complete Time: 09:19 rn 01/08 07:33 Order name: NT PRO-BNP; Complete Time: 08:10 rn 01/08 07:33 Order name: PT-INR; Complete Time: 08:10 rn 01/08 07:33 Order name: Troponin HS; Complete Time: 08:10 rn 01/08 07:48 Order name: CBC Smear Scan; Complete Time: 09:19 EDMS 01/08 07:33 Order name: XRAY Chest (1 view); Complete Time: 08:38 rn 01/08 07:45 Order name: CT Aorta for Dissection; Complete Time: 08:38 rn 01/08 07:33 Order name: EKG; Complete Time: 07:33 rn 01/08 07:33 Order name: Cardiac monitoring; Complete Time: 07:34 rn 01/08 07:33 Order name: EKG - Nurse/Tech; Complete Time: 07:34 rn 01/08 07:33 Order name: IV Saline Lock; Complete Time: 07:55 rn 01/08 07:33 Order name: Labs collected and sent; Complete Time: 07:34 rn 01/08 07:33 Order name: O2 Per Protocol; Complete Time: 07:34 rn 01/08 07:33 Order name: O2 Sat Monitoring; Complete Time: 07:34 rn EC:08 Rate is 62 beats/min. Rhythm is regular. QRS Plessis is Normal. RI interval is normal. QRS rn interval is normal. QT interval is normal. No Q waves. T waves are Normal. No ST changes noted. Clinical impression: Normal ECG. Interpreted by me. Reviewed by me. Administered Medications: 09:59 Drug: Aspirin PO 325 mg PO once Route: PO; kc6 10:25 Follow up: Response: No adverse reaction kc6 Disposition Summary: 01/09/24 10:46 Transfer Ordered Notes: Transfer Location: [facility] rn Reason: Higher level of care rn Condition: Stable rn Problem: new rn Symptoms: have improved rn Accepting Physician: (01/09/24 11:53) kc6 Diagnosis - Chest pain, unspecified rn - Thoracic aortic aneurysm, without rupture rn Forms: - Medication Reconciliation Form rn - SBAR form rn Signatures: Dispatcher [employer] EDNeo Cox MD MD rn Prokisch, Amanda, RN RN ap3 Yue Almanza, RN RN kc6 Corrections: (The following items were deleted from the chart) 11:53 10:46 rn kc6
[2024-01-09 12:06] VITALS: BP 137/97; O2SAT 99
--- NOTE | 2024-01-10 14:10 | EKG ---
Test Date: 2024-01-09 Test Time: 07:26:41 Garde Manager: LEOBARDO MEASUREMENT RESULTS: Intervals: Rate: 62 [place]: 154 QRSD: 92 QT: 414 QTc: 420 [place]: P: 56 [place]: 154 QRS: 6 T: 45 INTERPRETIVE STATEMENTS: Normal sinus rhythm with sinus arrhythmia Normal ECG Compared to ECG 04/02/2020 02:18:00 No significant changes Electronically Signed On 01-10-24 14:06:05 CDT by Ronald Lyons
== END 2024-01-09 11:53 | disposition short-term general hospital (02) ==
LOC: ER 07:18
DX: R07.9 Chest pain, unspecified (principal); I71.20 Thoracic aortic aneurysm, without rupture, unspecified; I10 Essential (primary) hypertension
CPT/HCPCS: 93005; 85025; 80048; 36415; 85610; 84484; 83880; 71275; 74175; 71045; 99285; Q9967